=== PATIENT | female | born 1950 ===

== ENCOUNTER 2018-09-14 15:22 | Inpatient (IN) | payer MEDICARE ==
--- NOTE | 2018-09-14 16:00 | Emergency Department Report ---
Stated Complaint: POSSIBLE STROKE Time Seen by Provider: 09/14/18 15:57 - HPI History of Present Illness: This is a 68 y.o. female accompanied by daughter with AMS. PMH CVA, TIA, and seizures. Daughter states patient is unable to comprehend what she is asking patient to do over the past 2-3 hours. She will not move left arm. Patient daughter fixed lunch and asked patient to eat and patient was staring into space and couldn't understand what she was asking. - Exam Vital Signs: Vital Signs 09/14/18 15:36 Temperature 98.6 F Pulse Rate 79 Respiratory 20 Rate Blood Pressure 128/77 O2 Sat by Pulse 98 Oximetry MSE screening note: Focused history and physical exam performed. Due to findings the following was ordered: Labs, CXR, and CT of head. POC 78. Main ED for further evaluation. ED Disposition for MSE Condition: Stable
[2018-09-14] MEDS ORDERED: KEPPRA 1,000 MG in NACL 0.9% 100 ML IV ONE (16:32)
[2018-09-14 16:39] LABS: Basophils % (Auto) 0.9 % (0.0-1.8); Eosinophils % (Auto) 0.9 % (0.0-4.3); Hematocrit 40.7 % (30.3-42.9); Hemoglobin 13.1 gm/dl (10.1-14.3); Lymphocytes # (Auto) 0.8 K/mm3 (1.2-5.4); Lymphocytes % (Auto) 17.1 % (13.4-35.0); Mean Corpuscular HGB Conc 32 % (30-34); Mean Corpuscular Volume 85 fl (79-97); Monocytes # (Auto) 0.4 K/mm3 (0.0-0.8); Platelet Count 232 K/mm3 (140-440); Red Blood Count 4.78 M/mm3 (3.65-5.03); Red Cell Distribution Width 13.9 % (13.2-15.2)
[2018-09-14 16:53] LABS: INR 0.94 (0.87-1.13)
[2018-09-14 16:54] LABS: Partial Thromboplastin Time 28.6 Sec. (24.2-36.6)
[2018-09-14 16:55] LABS: BUN/Creatinine Ratio 16; Blood Urea Nitrogen 11 mg/dL (7-17); Hemolysis Index 92
[2018-09-14] MEDS ORDERED: KEPPRA 1,000 MG/NS 0.75% 100ML 1,000 MG/100 ML BAG IV ONE (17:00)
[2018-09-14] MEDS ORDERED: ASPIRIN PO ONE (17:02)
--- NOTE | 2018-09-14 17:02 | Emergency Department Report ---
ED Neuro Deficit HPI - General Chief Complaint: Neuro Symptoms/Deficit Stated Complaint: POSSIBLE STROKE Time Seen by Provider: 09/14/18 15:57 Source: family (Daughter) Mode of arrival: Wheelchair Limitations: No Limitations - History of Present Illness Initial Comments: [facility] TeleStroke Metrics: LKW: 1900 Door Time: 1522 [facility] Contacted: 1601 [facility] at Bedside: 1607 NIHSS: 1620 Decision on Alteplase: Not to give as her last known well time was last night. Interventional Candidate: Not a candidate as her symptoms are not consistent with a large vessel proximal occlusion. Chief Complaint: Altered mental status and left-sided weakness/numbness HPI: Asked to see this patient in telemedicine consultation. ?Consultation was performed with assistance of ancillary / medical staff at bedside. Verbal consent to perform the examination with telemedicine was obtained. Patient agreed to proceed with the consultation. 68-year-old left-handed -Italian female who was brought to the emergency room by her daughter for persistent altered mental status. According to the ER team, daughter had reported that the patient was last known well last night around 7 PM[address] At some point along the way she developed some confusion and making odd statements. The patient herself tells me that she started feeling off and confused sometime around noontime today. However, apparently this has been going on since last night. Daughter apparently came back home around noontime, and found the patient still confused. She noted that she had problems comprehending things and answering her questions. There is also a question of left arm weakness. She had reported that the patient seemed to be staring off at times while she was fixing her lunch. Patient herself complains of feeling off balance and "off". Patient states there was a recent adjustment of her thyroid medications. She does take a baby aspirin for her history of right hemisphere stroke approximately 5 years ago. Patient also has a history of seizure disorder, and states she takes Keppra 500 mg once a day. However, medical record shows she is supposed to be on Keppra 1000 mg once a day. Patient currently complains still feeling off and some left hemibody numbness. No other modifying factors. No other associated symptoms. PMH: Right hemisphere stroke, hyperlipidemia, hypothyroidism, GERD, and seizure disorder SOC: Negative x3. Patient lives with her daughter. FMH: Negative for strokes or seizures. ROS: 13 point review systems were reviewed with the patient, and are all negative with the exception of the aforementioned in the history of present illness. VS: Temperature is 98.6F, pulse 79, respiration 20, blood pressure 128/77, oxygen saturation 98% Exam: Patient is in no apparent distress. Patient appears as stated age. No obvious acute respiratory or cardiac distress. Patient is well groomed and well-nourished. 1a- LOC: Keenly responsive - 0 1b- LOC questions: Answers 1 question correctly - 1 1c- LOC commands- Performs both tasks correctly- 0 2- Gaze: Normal; no gaze paresis or gaze deviation - 0 3- Visual Arauz: normal, no Visual field deficit - 0 4- Facial movements: no facial palsy - 0 5- Upper limb motor - no drift - 0 6- Lower limb motor - no drift - 0 7- Limb Coordination: left arm and leg ataxia - 2 8- Sensory: Left hemibody sensory loss - 1 9- Language - No aphasia - 0 10- Speech - No dysarthria -0 11- Neglect / Extinction - none found - 0 NIHSS score: 4 Diagnostic Data: Blood glucose 78 CT of the head per ER attending showed no acute hemorrhage or mass. There is an old prior right hemisphere stroke. Medical Data Reviewed: 1.Data reviewed include clinical labs, radiology, and medical tests; 2.Tests results discussed w/performing or interpreting physician; 3.Obtaining/reviewing old medical records; 4.Obtaining case history from another source; 5.Independent?review of image, tracing, or specimen. Medical Decision Making: - Extensive number of diagnosis or management options are considered below. - Extensive amount of complex data reviewed. - High risk of complication and/or morbidity or mortality are associated with differential diagnostic considerations below. - There may be?uncertain?outcome and increased probability of prolonged functional impairment or high probability of severe prolonged functional impairment associated with some of these differential diagnosis. Differential Diagnosis for Stroke: 1. Cardioembolic stroke 2. Small vessel disease/lacune 3. Thromboembolic, [id number] mechanism 4. Hypercoagulable state-related infarct 5. Transient ischemic attack 6. Thrombotic mechanism, large artery disease Assessment: 1. Acute encephalopathy possibly due to breakthrough seizure 2. Prior right hemisphere seizure 3. Seizure disorder 4. Hyperlipidemia 5. GERD 6. Hypothyroidism Recommendations: Patient can be admitted to the hospital for further workup of her symptoms. Metabolic and infectious workup per primary team. Patient can be maintained on her aspirin. Increase her Keppra to 1000 mg p.o. twice a day. She will be given a IV Keppra load in the ER. Check MRI of the brain to rule out any acute intracranial process. Consult local neurology team to assist with evaluation and management. Continue supportive care. Thank you for allowing [facility] to participate in the care of your patient. Please call me, Dr. Green, with any questions at [phone]. Case discussed with the ER staff and Dr. Escobar. Critical Care notation: I was called to see this critical patient emergently. I personally evaluated this critical patient for acute stroke evaluation, and determining their eligibility for IV Alteplase and interventional therapies. I have spent appro ximately 20 minutes with the patient, including time at bedside, time discussing the case with other physicians, reviewing plan of care, and time independently reviewing the records and scans. -: Last night Location: altered - Related Data Home Medications: Home Medications Medication Instructions Recorded Confirmed Last Taken AtorvaSTATin [Lipitor] 20 mg PO DAILY 05/26/18 05/26/18 05/26/18 Levothyroxine [Synthroid] 75 mg PO 3XW 05/26/18 05/26/18 05/25/18 Pantoprazole [Protonix TAB] 40 mg PO DAILY 05/26/18 05/26/18 05/26/18 levETIRAcetam [Levetiracetam] 1,000 mg PO DAILY 05/26/18 05/26/18 05/25/18 Previous Rx's Medication Instructions Recorded Last Taken Type Aspirin 81 mg PO DAILY #30 tab.chew 05/28/18 Unknown Rx Allergies/Adverse Reactions: Allergies Allergy/AdvReac Type Severity Reaction Status Date / Time mushroom Allergy Anaphylaxis Verified 05/26/18 22:14 shrimp Allergy Anaphylaxis Verified 05/26/18 22:14 ED Review of Systems ROS: Stated complaint: POSSIBLE STROKE Other details as noted in HPI ED Past Medical Hx - Past Medical History Hx CVA: Yes (2013) Hx GERD: Yes Hx Seizures: Yes Hx Kidney Stones: Yes Additional medical history: hyperthyroid, stroke x2 - Surgical History Hx Cholecystectomy: Yes Additional Surgical History: amplatzer septal occluder 10/06/2013 model # 9-ASD-020 Serial Lot [id number]. hysterectomy - Social History Smoking Status: Never Smoker Substance Use Type: None - Medications Home Medications: Home Medications Medication Instructions Recorded Confirmed Last Taken Type AtorvaSTATin [Lipitor] 20 mg PO DAILY 05/26/18 05/26/18 05/26/18 History Levothyroxine [Synthroid] 75 mg PO 3XW 05/26/18 05/26/18 05/25/18 History Pantoprazole [Protonix TAB] 40 mg PO DAILY 05/26/18 05/26/18 05/26/18 History levETIRAcetam [Levetiracetam] 1,000 mg PO DAILY 05/26/18 05/26/18 05/25/18 History Aspirin 81 mg PO DAILY #30 tab.chew 05/28/18 Unknown Rx ED Neuro Physical Exam - General Limitations: No Limitations Suspected Stroke: Yes (Stroke vs Seizure) - NIHSS Assessment Interval: Baseline 1a. Level of Consciousness: alert/keenly responsive 1b. LOC Questions: answers 1 question correctly 1c. LOC Commands: performs tasks correctly 2. Best Gaze: normal 3. Visual: no visual loss 4. Facial Palsy: normal symmetrical movement 5b. Motor Arm Right: no drift 5a. Motor Arm Left: no drift 6a. Motor Leg Left: no drift 6b. Motor Leg Right: no drift 7. Limb Ataxia: present 2 limbs 8. Sensory: mild/moderate sensory loss 9. Best Language: no aphasia 10. Dysarthria: normal 11. Extinction/Inattention: no abnormality Total Score: 4 Stroke Severity: Minor Stroke ED Course Vital Signs 09/14/18 15:36 Temperature 98.6 F Pulse Rate 79 Respiratory 20 Rate Blood Pressure 128/77 O2 Sat by Pulse 98 Oximetry - Lab Data Result diagrams: 09/14/18 16:28 09/14/18 16:28 Lab Results 09/14/18 09/14/18 09/14/18 Range/Units 15:30 16:06 16:28 WBC 4.8 (4.5-11.0) K/mm3 RBC 4.78 (3.65-5.03) M/mm3 Hgb 13.1 (10.1-14.3) gm/dl Hct 40.7 (30.3-42.9) % MCV 85 (79-97) fl MCH 27 L (28-32) pg MCHC 32 (30-34) % RDW 13.9 (13.2-15.2) % Plt Count 232 (140-440) K/mm3 Lymph % (Auto) 17.1 (13.4-35.0) % [place] % (Auto) 9.0 H (0.0-7.3) % Eos % (Auto) 0.9 (0.0-4.3) % Baso % (Auto) 0.9 (0.0-1.8) % Lymph # 0.8 L (1.2-5.4) K/mm3 [place] # 0.4 (0.0-0.8) K/mm3 Eos # 0.0 (0.0-0.4) K/mm3 Baso # 0.0 (0.0-0.1) K/mm3 Seg Neutrophils % 72.1 H (40.0-70.0) % Seg Neutrophils # 3.5 (1.8-7.7) K/mm3 PT (12.2-14.9) Sec. INR (0.87-1.13) APTT (24.2-36.6) Sec. Thrombin Time (15.1-19.6) Sec. Sodium (137-145) mmol/L Potassium (3.6-5.0) mmol/L Chloride (98-107) mmol/L Carbon Dioxide (22-30) mmol/L Anion Gap mmol/L BUN (7-17) mg/dL Creatinine (0.7-1.2) mg/dL Estimated GFR ml/min BUN/Creatinine Ratio % Glucose (65-100) mg/dL POC Glucose 78 79 (70-105) Calcium (8.4-10.2) mg/dL Troponin T (0.00-0.029) ng/mL 09/14/18 09/14/18 09/14/18 Range/Units 16:28 16:28 16:28 WBC (4.5-11.0) K/mm3 RBC (3.65-5.03) M/mm3 Hgb (10.1-14.3) gm/dl Hct (30.3-42.9) % MCV (79-97) fl MCH (28-32) pg MCHC (30-34) % RDW (13.2-15.2) % Plt Count (140-440) K/mm3 Lymph % (Auto) (13.4-35.0) % [place] % (Auto) (0.0-7.3) % Eos % (Auto) (0.0-4.3) % Baso % (Auto) (0.0-1.8) % Lymph # (1.2-5.4) K/mm3 [place] # (0.0-0.8) K/mm3 Eos # (0.0-0.4) K/mm3 Baso # (0.0-0.1) K/mm3 Seg Neutrophils % (40.0-70.0) % Seg Neutrophils # (1.8-7.7) K/mm3 PT 13.1 (12.2-14.9) Sec. INR 0.94 (0.87-1.13) APTT 28.6 (24.2-36.6) Sec. Thrombin Time 16.7 (15.1-19.6) Sec. Sodium 142 (137-145) mmol/L Potassium 4.1 (3.6-5.0) mmol/L Chloride 105.3 (98-107) mmol/L Carbon Dioxide 25 (22-30) mmol/L Anion Gap 16 mmol/L BUN 11 (7-17) mg/dL Creatinine 0.7 (0.7-1.2) mg/dL Estimated GFR > 60 ml/min BUN/Creatinine Ratio 16 % Glucose 108 H (65-100) mg/dL POC Glucose (70-105) Calcium 10.0 (8.4-10.2) mg/dL Troponin T < 0.010 (0.00-0.029) ng/mL Critical care attestation.: If time is entered above; I have spent that time in minutes in the direct care of this critically ill patient, excluding procedure time. ED Disposition Clinical Impression: Seizure Disposition: DC-09 OP ADMIT IP TO THIS HOSP Is pt being admited?: Yes Does the pt Need Aspirin: Yes Condition: Stable
[2018-09-14] MEDS ORDERED: TYLENOL ONE (17:18)
--- NOTE | 2018-09-14 17:30 | Emergency Department Report ---
ED Neuro Deficit HPI - General Chief Complaint: Neuro Symptoms/Deficit Stated Complaint: POSSIBLE STROKE Time Seen by Provider: 09/14/18 15:57 Source: family (Daughter) Mode of arrival: Wheelchair Limitations: No Limitations - History of Present Illness Initial Comments: 68-year-old female with history of CVA in the past presents to ED with altered mental status. Patient last seen normal at 7 PM last night. Daughter states she went to check on patient today and she seems to respond, and also seemed to have weakness in the left arm. Daughter states patient had no residual deficits from her previous stroke. PCP: Nav[facility] -: This afternoon Last Observed Normal: 19:00 (yesterday evening) Location: left arm, altered Presenting Symptoms: Present: Altered Mental Status Place: home Severity: moderate Quality: weak Improves With: none Worsens With: none Associated Symptoms: confusion. denies: chest pain, cough, fever/chills, headaches, nausea/vomiting, shortness of breath Treatments Prior to Arrival: none - Related Data Home Medications: Home Medications Medication Instructions Recorded Confirmed Last Taken AtorvaSTATin [Lipitor] 20 mg PO DAILY 05/26/18 05/26/18 05/26/18 Pantoprazole [Protonix TAB] 40 mg PO DAILY 05/26/18 05/26/18 05/26/18 levETIRAcetam [Levetiracetam] 1,000 mg PO DAILY 05/26/18 05/26/18 05/25/18 Latanoprost [Xalatan] 1 drop OU HS 09/14/18 09/14/18 Unknown Levothyroxine Sodium [Synthroid] 112 mcg PO QDAY 09/14/18 09/14/18 Unknown Previous Rx's Medication Instructions Recorded Last Taken Type Aspirin 81 mg PO DAILY #30 tab.chew 05/28/18 Unknown Rx Allergies/Adverse Reactions: Allergies Allergy/AdvReac Type Severity Reaction Status Date / Time mushroom Allergy Anaphylaxis Verified 05/26/18 22:14 shrimp Allergy Anaphylaxis Verified 05/26/18 22:14 ED Review of Systems ROS: Stated complaint: POSSIBLE STROKE Other details as noted in HPI Comment: All other systems reviewed and negative Constitutional: denies: chills, fever Respiratory: denies: cough, shortness of breath Cardiovascular: denies: chest pain Gastrointestinal: denies: abdominal pain, nausea, vomiting Neurological: denies: headache ED Past Medical Hx - Past Medical History Hx CVA: Yes (2013) Hx GERD: Yes Hx Seizures: Yes Hx Kidney Stones: Yes Additional medical history: hyperthyroid, stroke x2 - Surgical History Hx Cholecystectomy: Yes Additional Surgical History: amplatzer septal occluder 10/06/2013 model # 9-ASD- 020 Serial Lot [id number]. hysterectomy - Social History Smoking Status: Never Smoker Substance Use Type: None - Medications Home Medications: Home Medications Medication Instructions Recorded Confirmed Last Taken Type AtorvaSTATin [Lipitor] 20 mg PO DAILY 05/26/18 05/26/18 05/26/18 History Pantoprazole [Protonix TAB] 40 mg PO DAILY 05/26/18 05/26/18 05/26/18 History levETIRAcetam [Levetiracetam] 1,000 mg PO DAILY 05/26/18 05/26/18 05/25/18 History Aspirin 81 mg PO DAILY #30 tab.chew 05/28/18 Unknown Rx Latanoprost [Xalatan] 1 drop OU HS 09/14/18 09/14/18 Unknown History Levothyroxine Sodium [Synthroid] 112 mcg PO QDAY 09/14/18 09/14/18 Unknown History ED Neuro Physical Exam - General Limitations: No Limitations General appearance: alert, in no apparent distress Suspected Stroke: Yes - Head Head exam: Present: atraumatic, normocephalic - Eye Eye exam: Present: normal appearance - ENT ENT exam: Present: mucous membranes moist - Neck Neck exam: Present: normal inspection - Respiratory Respiratory exam: Present: normal lung sounds bilaterally. Absent: respiratory distress - Cardiovascular Cardiovascular Exam: Present: regular rate, normal rhythm - GI/Abdominal GI/Abdominal exam: Present: soft. Absent: distended, tenderness - Extremities Exam Extremities exam: Present: normal inspection - NIHSS Assessment Interval: Baseline 1a. Level of Consciousness: alert/keenly responsive 1b. LOC Questions: answers 1 question correctly 1c. LOC Commands: performs tasks correctly 2. Best Gaze: partial gaze palsy 3. Visual: no visual loss 4. Facial Palsy: normal symmetrical movement 5b. Motor Arm Right: no drift 5a. Motor Arm Left: drift 6a. Motor Leg Left: no drift 6b. Motor Leg Right: no drift 7. Limb Ataxia: present 1 limb 8. Sensory: mild/moderate sensory loss 9. Best Language: no aphasia 10. Dysarthria: normal 11. Extinction/Inattention: no abnormality Total Score: 5 Stroke Severity: Moderate Stroke - Psychiatric Psychiatric exam: Present: normal affect, normal mood - Skin Skin exam: Present: warm, dry, intact, normal color ED Course Vital Signs 09/14/18 15:36 Temperature 98.6 F Pulse Rate 79 Respiratory 20 Rate Blood Pressure 128/77 O2 Sat by Pulse 98 Oximetry - Lab Data Result diagrams: 09/14/18 16:28 09/14/18 16:28 Lab Results 09/14/18 09/14/18 09/14/18 Range/Units 15:30 16:06 16:28 WBC 4.8 (4.5-11.0) K/mm3 RBC 4.78 (3.65-5.03) M/mm3 Hgb 13.1 (10.1-14.3) gm/dl Hct 40.7 (30.3-42.9) % MCV 85 (79-97) fl MCH 27 L (28-32) pg MCHC 32 (30-34) % RDW 13.9 (13.2-15.2) % Plt Count 232 (140-440) K/mm3 Lymph % (Auto) 17.1 (13.4-35.0) % [place] % (Auto) 9.0 H (0.0-7.3) % Eos % (Auto) 0.9 (0.0-4.3) % Baso % (Auto) 0.9 (0.0-1.8) % Lymph # 0.8 L (1.2-5.4) K/mm3 [place] # 0.4 (0.0-0.8) K/mm3 Eos # 0.0 (0.0-0.4) K/mm3 Baso # 0.0 (0.0-0.1) K/mm3 Seg Neutrophils % 72.1 H (40.0-70.0) % Seg Neutrophils # 3.5 (1.8-7.7) K/mm3 PT (12.2-14.9) Sec. INR (0.87-1.13) APTT (24.2-36.6) Sec. Thrombin Time (15.1-19.6) Sec. Sodium (137-145) mmol/L Potassium (3.6-5.0) mmol/L Chloride (98-107) mmol/L Carbon Dioxide (22-30) mmol/L Anion Gap mmol/L BUN (7-17) mg/dL Creatinine (0.7-1.2) mg/dL Estimated GFR ml/min BUN/Creatinine Ratio % Glucose (65-100) mg/dL POC Glucose 78 79 (70-105) Calcium (8.4-10.2) mg/dL Troponin T (0.00-0.029) ng/mL 09/14/18 09/14/18 09/14/18 Range/Units 16:28 16:28 16:28 WBC (4.5-11.0) K/mm3 RBC (3.65-5.03) M/mm3 Hgb (10.1-14.3) gm/dl Hct (30.3-42.9) % MCV (79-97) fl MCH (28-32) pg MCHC (30-34) % RDW (13.2-15.2) % Plt Count (140-440) K/mm3 Lymph % (Auto) (13.4-35.0) % [place] % (Auto) (0.0-7.3) % Eos % (Auto) (0.0-4.3) % Baso % (Auto) (0.0-1.8) % Lymph # (1.2-5.4) K/mm3 [place] # (0.0-0.8) K/mm3 Eos # (0.0-0.4) K/mm3 Baso # (0.0-0.1) K/mm3 Seg Neutrophils % (40.0-70.0) % Seg Neutrophils # (1.8-7.7) K/mm3 PT 13.1 (12.2-14.9) Sec. INR 0.94 (0.87-1.13) APTT 28.6 (24.2-36.6) Sec. Thrombin Time 16.7 (15.1-19.6) Sec. Sodium 142 (137-145) mmol/L Potassium 4.1 (3.6-5.0) mmol/L Chloride 105.3 (98-107) mmol/L Carbon Dioxide 25 (22-30) mmol/L Anion Gap 16 mmol/L BUN 11 (7-17) mg/dL Creatinine 0.7 (0.7-1.2) mg/dL Estimated GFR > 60 ml/min BUN/Creatinine Ratio 16 % Glucose 108 H (65-100) mg/dL POC Glucose (70-105) Calcium 10.0 (8.4-10.2) mg/dL Troponin T < 0.010 (0.00-0.029) ng/mL - EKG Data -: EKG Interpreted by Me EKG shows normal: sinus rhythm, axis, intervals, QRS complexes, ST-T waves Rate: normal Interpretation: no acute changes - Radiology Data Radiology results: report reviewed, image reviewed - Medical Decision Making 68-year-old female with history of CVA presents CDU post-mental status. CT shows no acute findings, only evidence of previous CVA. Patient currently outside the window for tPA because she was last seen normal last night 7 PM. Patient seen and evaluated by telephone neurologist. He believes symptoms could be due to possible seizure, so she has history of seizures. Recommends Keppra load this patient only taken 1000 mg once a day. Remainder of the patient's workup is unremarkable. We will admit to hospitalist, Dr. Del Cid. - Differential Diagnosis CVA, seizure, UTI, pneumonia - Thrombolytic Inclusion/Exclusion Thrombolytic Exclusion Criteria: Symptom Onset > 3 Hours Critical care attestation.: If time is entered above; I have spent that time in minutes in the direct care of this critically ill patient, excluding procedure time. ED Disposition Clinical Impression: Seizure, Altered mental status Disposition: OP ADMIT IP TO THIS HOSP Is pt being admited?: Yes Condition: Stable Referrals: PRIMARY CARE, [Primary Care Provider] - 3-5 Days Time of Disposition: 17:28
--- NOTE | 2018-09-14 17:31 | Cat Scan Report ---
PROCEDURE: CT HEAD/BRAIN WO CON TECHNIQUE: Routine axial cuts were prior to calvarium CT DI 56 DLP 920 HISTORY: neuro deficits <6hrs or sx present upon awakening COMPARISONS: 05/26/2018 FINDINGS: When compared to prior study Again there is an area of encephalomalacia stable in appearance in the right MCA distribution with co mpensatory dilatation of the right lateral ventricle Again there is assumed small meningioma inner table of the superior midportion of the left parietal b one follow up MRI would be helpful to best evaluate this finding which appears to have slightly incre ased by approximately 3 mm in size prior study, but this could be due to slice selection artifact Otherwise the study is stable in appearance No displaced fracture. No midline shift. No herniation. No acute bleed. Atrophy. Periventricular small vessel disease. Multiple small areas of decreased attenuation in the white matter, most likely representing old vascu lar insults; comparison to prior study or follow-up MRI may be helpful if clinically possible and if clinically warranted. No hydrocephalus. No subarachnoid hemorrhage. IMPRESSION: When compared to prior study of 05/26/2018 Again there is an area of encephalomalacia stable in appearance in the right MCA distribution with co mpensatory dilatation of the right lateral ventricle Again there is assumed small meningioma inner table of the superior midportion of the left parietal b one follow up MRI would be helpful to best evaluate this finding which appears to have slightly incre ased by approximately 3 mm in size prior study, but this could be due to slice selection artifact Otherwise the study is stable in appearance. This document is electronically signed by Huan Aj MD., September 14 2018 05:29:16 PM ET
[2018-09-14] MEDS ORDERED: TYLENOL PO ONE (17:39)
--- NOTE | 2018-09-14 17:47 | XRay Report ---
PROCEDURE: XR CHEST 1V AP TECHNIQUE: Frontal portable view of the chest HISTORY: neuro deficit COMPARISONS: Chest x-ray dated May 26, 2018 the report of that study is not available for review at the time of this dictation. FINDINGS: There is prominence of the interstitial markings in both lungs similar in appearance to the previous study. There is no evidence of focal infiltrate, pneumothorax or pleural fluid collection. The cardiac silhouette appears to be enlarged similar in appearance to previous study with prosthetic cardiac device as was demonstrated on the previous study.. The thoracic aorta is tortuous. The bony structures are unremarkable. Surgical clips are demonstrated in the right abdomen. IMPRESSION: 1. No evidence of an acute pulmonary process. No significant change since previous study dated May 26, 2018. This document is electronically signed by Mahsa Bernard MD., September 14 2018 05:45:39 PM ET
[2018-09-14] MEDS ORDERED: ATIVAN IV PRN (19:16)
[2018-09-14] MEDS ORDERED: ATIVAN ONE (19:20)
--- NOTE | 2018-09-15 00:30 | Consultation ---
HISTORY OF PRESENT ILLNESS: This is a 68-year-old black female that presents to the Emergency Room at [facility]. She presents to the hospital with a history of not acting like herself and having problems with speech, disorientation. She was seen on stroke alert and she has evidence on CT of a large right-sided stroke over the right temporoparietal area in the distribution of the right middle cerebral artery. She states that she was last here in the hospital in 05/2018 and at that point, she had an evaluation for problems with weakness and disorientation, not speaking, according to her daughter. I spoke with the emergency physician. She was disoriented, had a gaze weakness of the left. She was moving her limbs well, did not have any focal weakness of the face, seemed very vague and distant. She had noted to have a blood sugar of 79 on admission and received some ____. At that point, the patient did seem somewhat better, but I did review her CT scan and it is essentially unchanged from the previous CT that was done in 05/[address] is at this point completely unchanged from previously. There is evidence of bleed or edema. I spoke with the emergency physician, recommend further admission for evaluation of the disorder. JOB# [id number] DELICIA/JABIER
[2018-09-15 01:54] LABS: Bilirubin,Urine NEG (Negative); Blood,Urine NEG (Negative); Color,Urine Straw (Yellow); Protein,Urine <15 mg/dL mg/dL (Negative); Urobilinogen,Urine < 2.0 mg/dL (<2.0); WBC,Urine < 1.0 /HPF (0.0-6.0)
--- NOTE | 2018-09-15 07:10 | History and Physical Report ---
History of Present Illness Date of examination: 09/14/18 Date of admission: 09/14/18 17:28 Chief complaint: L side weakness since AM History of present illness: History of Present Illness Initial Comments: 68-year-old female with history of CVA in the past presents to ED with altered mental status. Patient last seen normal at 7 PM last night. Daughter states she went to check on patient today and she seems to respond, and also seemed to have weakness in the left arm. Daughter states patient had no residual deficits from her previous stroke.Weak in LUE and LLE since AM Past Medical History CVA: Yes (2013)-No residual deficits GERD: Yes Seizures: Yes Kidney Stones: Yes Additional medical history: hyperthyroid, stroke x2 Surgical History Hx Cholecystectomy: Yes Additional Surgical History: amplatzer septal occluder 10/06/2013 model # 9-ASD-020 Serial Lot [id number]. hysterectomy Social History Smoking Status: Never Smoker Substance Use Type: None - Medications Home Medications: Home Medications Medication Instructions Recorded Confirmed Last Taken Type AtorvaSTATin [Lipitor] 20 mg PO DAILY 05/26/18 05/26/18 05/26/18 History Pantoprazole [Protonix TAB] 40 mg PO DAILY 05/26/18 05/26/18 05/26/18 History levETIRAcetam [Levetiracetam] 1,000 mg PO DAILY 05/26/18 05/26/18 05/25/18 History Aspirin 81 mg PO DAILY #30 tab.chew 05/28/18 Unknown Rx Latanoprost [Xalatan] 1 drop OU HS 09/14/18 09/14/18 Unknown History Levothyroxine Sodium [Synthroid] 112 mcg PO QDAY 09/14/18 09/14/18 Unknown History Review of Systems ROS: Stated complaint: POSSIBLE STROKE Other details as noted in HPI Comment: All other systems reviewed and negative Constitutional: denies: chills, fever Respiratory: denies: cough, shortness of breath Cardiovascular: denies: chest pain Gastrointestinal: denies: abdominal pain, nausea, vomiting Neurological: denies: headache Medications and Allergies Allergies Allergy/AdvReac Type Severity Reaction Status Date / Time mushroom Allergy Anaphylaxis Verified 05/26/18 22:14 shrimp Allergy Anaphylaxis Verified 05/26/18 22:14 Home Medications Medication Instructions Recorded Confirmed Last Taken Type AtorvaSTATin [Lipitor] 20 mg PO HS 05/26/18 09/14/18 05/26/18 History Pantoprazole [Protonix TAB] 40 mg PO DAILY 05/26/18 09/14/18 05/26/18 History levETIRAcetam [Levetiracetam] 1,000 mg PO DAILY 05/26/18 09/14/18 05/25/18 History Aspirin 81 mg PO DAILY #30 tab.chew 05/28/18 09/14/18 Unknown Rx Latanoprost [Xalatan] 1 drop OU HS 09/14/18 09/14/18 Unknown History Levothyroxine Sodium [Synthroid] 112 mcg PO QDAY 09/14/18 09/14/18 Unknown History Active Meds: Active Medications Lorazepam (Ativan) 1 mg IV Q3H PRN PRN Reason: Seizures Last Admin: 09/14/18 19:21 Dose: 1 mg Documented by: Exam - Constitutional Vitals: Temp Pulse Resp BP Pulse Ox 97.5 F L 94 H 20 105/69 98 09/15/18 00:19 09/15/18 00:19 09/15/18 00:19 09/15/18 00:19 09/15/18 06:15 General appearance: Present: no acute distress, well-nourished - EENT Eyes: Present: PERRL ENT: hearing intact, clear oral mucosa - Neck Neck: Present: supple, normal ROM - Respiratory Respiratory effort: normal Respiratory: bilateral: CTA - Cardiovascular Heart rate: 78 Rhythm: regular Heart Sounds: Present: S1 & S2. Absent: rub, click - Extremities Extremities: no ischemia, pulses symmetrical, No edema Peripheral Pulses: within normal limits - Abdominal General gastrointestinal: Present: soft, non-tender, non-distended, normal bowel sounds Female genitourinary: Present: normal - Integumentary Integumentary: Present: clear, warm, dry - Musculoskeletal Musculoskeletal: left sided weakness - Psychiatric Psychiatric: appropriate mood/affect, intact judgment & insight - Neurologic Neurologic: CNII-XII intact, focal deficits (LUE and LLE 0/5 power reflexes diminished) - Allied Health Allied health notes reviewed: nursing, case management Results - Labs CBC & Chem 7: 09/14/18 16:28 09/14/18 16:28 Labs: Laboratory Last Values WBC 4.8 K/mm3 (4.5-11.0) 04/09/19 16:28 RBC 4.78 M/mm3 (3.65-5.03) 09/14/18 16:28 Hgb 13.1 gm/dl (10.1-14.3) 09/14/18 16:28 Hct 40.7 % (30.3-42.9) 09/14/18 16:28 MCV 85 fl (79-97) 09/14/18 16:28 MCH 27 pg (28-32) L 09/14/18 16:28 MCHC 32 % (30-34) 09/14/18 16:28 RDW 13.9 % (13.2-15.2) 09/14/18 16:28 Plt Count 232 K/mm3 (140-440) 09/14/18 16:28 Lymph % (Auto) 17.1 % (13.4-35.0) 09/14/18 16:28 [place] % (Auto) 9.0 % (0.0-7.3) H 09/14/18 16:28 Eos % (Auto) 0.9 % (0.0-4.3) 09/14/18 16:28 Baso % (Auto) 0.9 % (0.0-1.8) 09/14/18 16:28 Lymph # 0.8 K/mm3 (1.2-5.4) L 09/14/18 16:28 [place] # 0.4 K/mm3 (0.0-0.8) 09/14/18 16:28 Eos # 0.0 K/mm3 (0.0-0.4) 09/14/18 16:28 Baso # 0.0 K/mm3 (0.0-0.1) 09/14/18 16:28 Seg Neutrophils % 72.1 % (40.0-70.0) H 09/14/18 16:28 Seg Neutrophils # 3.5 K/mm3 (1.8-7.7) 09/14/18 16:28 PT 13.1 Sec. (12.2-14.9) 09/14/18 16:28 INR 0.94 (0.87-1.13) 09/14/18 16:28 APTT 28.6 Sec. (24.2-36.6) 09/14/18 16:28 Thrombin Time 16.7 Sec. (15.1-19.6) 09/14/18 16:28 Sodium 142 mmol/L (137-145) 09/14/18 16:28 Potassium 4.1 mmol/L (3.6-5.0) 09/14/18 16:28 Chloride 105.3 mmol/L (98-107) 09/14/18 16:28 Carbon Dioxide 25 mmol/L (22-30) 09/14/18 16:28 Anion Gap 16 mmol/L 09/14/18 16:28 BUN 11 mg/dL (7-17) 09/14/18 16:28 Creatinine 0.7 mg/dL (0.7-1.2) 09/14/18 16:28 Estimated GFR > 60 ml/min 09/14/18 16:28 BUN/Creatinine Ratio 16 % 09/14/18 16:28 Glucose 108 mg/dL (65-100) H 09/14/18 16:28 POC Glucose 79 (70-105) 09/14/18 16:06 Calcium 10.0 mg/dL (8.4-10.2) 09/14/18 16:28 Troponin T < 0.010 ng/mL (0.00-0.029) 09/14/18 16:28 Urine Color Straw (Yellow) 09/15/18 01:15 Urine Turbidity Clear (Clear) 09/15/18 01:15 Urine pH 7.0 (5.0-7.0) 09/15/18 01:15 Ur Specific [place] 1.008 (1.003-1.030) 09/15/18 01:15 Urine Protein <15 mg/dl mg/dL (Negative) 09/15/18 01:15 Urine Glucose (UA) Neg mg/dL (Negative) 09/15/18 01:15 Urine Ketones Neg mg/dL (Negative) 09/15/18 01:15 Urine Blood Neg (Negative) 09/15/18 01:15 Urine Nitrite Neg (Negative) 09/15/18 01:15 Urine Bilirubin Neg (Negative) 09/15/18 01:15 Urine Urobilinogen < 2.0 mg/dL (<2.0) 09/15/18 01:15 Ur Leukocyte Esterase Neg (Negative) 09/15/18 01:15 Urine WBC (Auto) < 1.0 /HPF (0.0-6.0) 09/15/18 01:15 Urine RBC (Auto) 3.0 /HPF (0.0-6.0) 09/15/18 01:15 U Epithel Cells (Auto) < 1.0 /HPF (0-13.0) 09/15/18 01:15 Short CBC 09/14/18 Range/Units 16:28 WBC 4.8 (4.5-11.0) K/mm3 Hgb 13.1 (10.1-14.3) gm/dl Hct 40.7 (30.3-42.9) % Plt Count 232 (140-440) K/mm3 BMP 09/14/18 16:28 Sodium 142 Potassium 4.1 Chloride 105.3 Carbon Dioxide 25 BUN 11 Creatinine 0.7 Glucose 108 H Calcium 10.0 Cardiac Enzymes 09/14/18 Range/Units 16:28 Troponin T < 0.010 (0.00-0.029) ng/mL Urine 09/15/18 Range/Units 01:15 Urine Color Straw (Yellow) Urine pH 7.0 (5.0-7.0) Ur Specific [place] 1.008 (1.003-1.030) Urine Protein <15 mg/dl (Negative) mg/dL Urine Glucose (UA) Neg (Negative) mg/dL - Imaging and Cardiology EKG: report reviewed (NSR 82/min) Imaging and Cardiology: CT Head IMPRESSION: When compared to prior study of 05/26/2018 Again there is an area of encephalomalacia stable in appearance in the right MCA distribution with compensatory dilatation of the right lateral ventricle Again there is assumed small meningioma inner table of the superior midportion of the left parietal bone follow up MRI would be helpful to best evaluate this finding which appears to have slightly increased by approximately 3 mm in size prior study, but this could be due to slice selection artifact Otherwise the study is stable Assessment and Plan Advance Directives: Yes (Full code) VTE prophylaxis?: Chemical Plan of care discussed with patient/family: Yes - Patient Problems (1) Acute CVA (cerebrovascular accident) Current Visit: Yes Status: Acute Plan to address problem: Acute CVA Out side the window period for TPA S[place] protocol initiated Neuro consult requeted (2) Seizure disorder Current Visit: Yes Status: Chronic Plan to address problem: Cont Keppra (3) HLD (hyperlipidemia) Current Visit: Yes Status: Chronic Qualifiers: Hyperlipidemia type: mixed hyperlipidemia Qualified Code(s): E78.2 - Mixed hyperlipidemia Plan to address problem: COnt Statins (4) GERD (gastroesophageal reflux disease) Current Visit: Yes Status: Chronic Qualifiers: Esophagitis presence: without esophagitis Qualified Code(s): K21.9 - Gastro-esophageal reflux disease without esophagitis Plan to address problem: COnt PPI's (5) Glaucoma Current Visit: Yes Status: Chronic Qualifiers: Glaucoma type: unspecified Plan to address problem: Cont Latanoprost (6) DVT prophylaxis Current Visit: Yes Status: Acute Plan to address problem: On Lovenox and GI prophylaxis
[2018-09-15] MEDS ORDERED: SODIUM CHLORIDE FLUSH SYRINGE 10 ML IV PRN (07:16)
[2018-09-15] MEDS ORDERED: TYLENOL PO PRN (07:16)
[2018-09-15] MEDS ORDERED: ZOFRAN IV PRN (07:16)
[2018-09-15] MEDS ORDERED: PERCOCET 5/325 PO PRN (07:17)
[2018-09-15] MEDS ORDERED: DILAUDID IV PRN (07:17)
[2018-09-15] MEDS ORDERED: SODIUM CHLORIDE FLUSH SYRINGE 10 ML INJ PRN (07:18)
[2018-09-15] MEDS ORDERED: D5NS 1,000 ML IV SCH (08:00)
--- NOTE | 2018-09-15 08:22 | Progress Note ---
Subjective Date of service: 09/15/18 Interval history: saw patient during stroke alert / reviviewed the old CT of brain and new CT of brain large old MCA infarct on the right MCA question of new stroke on the periphery plan MRI recommend EEG Objective - Vital Sign Vital Signs - 12hr 09/14/18 09/14/18 09/14/18 21:09 21:27 23:16 Temperature 97.7 F Pulse Rate 105 H 105 H Respiratory 20 Rate Blood Pressure 126/75 O2 Sat by Pulse 100 99 Oximetry 09/15/18 09/15/18 00:19 06:15 Temperature 97.5 F L Pulse Rate 94 H Respiratory 20 Rate Blood Pressure 105/69 O2 Sat by Pulse 100 98 Oximetry - Laboratory Findings CBC and BMP: 09/14/18 16:28 09/14/18 16:28 Abnormal Lab Findings: Abnormal Labs 09/14/18 09/14/18 16:28 16:28 MCH 27 L [place] % (Auto) 9.0 H Lymph # 0.8 L Seg Neutrophils % 72.1 H Glucose 108 H
[2018-09-15] MEDS ORDERED: KEPPRA PO SCH (10:00)
[2018-09-15] MEDS ORDERED: PEPCID PO SCH (10:00)
[2018-09-15] MEDS: PROTONIX PO SCH (10:44)
[2018-09-15] MEDS: KEPPRA PO SCH ×2 (10:45→21:06)
[2018-09-15] MEDS: BABY ASPIRIN PO SCH (10:51)
[2018-09-15] MEDS: SODIUM CHLORIDE FLUSH SYRINGE 10 ML IV SCH ×2 (10:52→21:07)
[2018-09-15] MEDS: SYNTHROID PO SCH (10:55)
--- NOTE | 2018-09-15 17:44 | Progress Note ---
Assessment and Plan Assessment and plan: Patient is a 68-year-old woman with history of CVA who presents with multiple seizures, AMS, weak in LUE and LLE weakness * CT Head IMPRESSION: When compared to prior study of 05/26/2018 Again there is an area of encephalomalacia stable in appearance in the right MCA distribution with compensatory dilatation of the right lateral ventricle Again there is assumed small meningioma inner table of the superior midportion of the left parietal bone follow up MRI would be helpful to best evaluate this finding which appears to have slightly increased by approximately 3 mm in size prior study, but this could be due to slice selection artifact Otherwise the study is stable -Status epilepticus: increase keppra dose, until daughter can verify how much keppra was actually taking -Acute metabolic encephalopathy -Suspected Acute CVA (cerebrovascular accident),Out side the window period for TPA, Stroke protocol initiated -HLD (hyperlipidemia) COnt Statins -GERD (gastroesophageal reflux disease) ppi -Glaucoma: cont Latanoprost -DVT prophylaxis: On Lovenox and GI prophylaxis History Interval history: Patient was seen and examined. Follow-up on current diagnosis of Seizures. Overnight uneventful. Patient denies any chest pain, shortness breath, nausea/vomiting or severe headaches. Imaging, nursing note, chart, labs and old chart reviewed. Discussed with patient. Daughter Sivan at bedside witnessed multiple seizures. Home meds reviewed and patient gave 5 different story regarding how much and when she takes her keppra, she suppose to take 500mg 2 tabs po [facility] Hospitalist Physical - Physical exam Narrative exam: Gen: WDWN, NAD, Awake, Alert, Orientated HEENT: NCAT, EOMI, PERRL, OP Clear Neck: supple, no adenopathy, no thyromegaly, no JVD CVS/Heart: RRR, normal S1S2, pulses present bilaterally Chest/Lungs: CTA B, Symmetrical chest expansion, good air entry bilaterally GI/Abdomen: soft, NTND, good bowel sounds, no guarding or rebound /Bladder: no suprapubic tenderness, no CVA or paraspinal tenderness Extermity/Skin: no c/c/e, no obvious rash MSK: FROM x 4 Neuro: CN 2-12 grossly intact, no new focal deficits Psych: calm - Constitutional Vitals: Temp Pulse Resp BP Pulse Ox 97.4 F L 80 12 127/73 93 09/15/18 11:54 09/15/18 11:54 09/15/18 11:54 09/15/18 11:54 09/15/18 11:54 General appearance: Present: no acute distress, well-nourished Results - Labs CBC & Chem 7: 09/14/18 16:28 09/14/18 16:28 Labs: Laboratory Last Values WBC 4.8 K/mm3 (4.5-11.0) 09/14/18 16:28 RBC 4.78 M/mm3 (3.65-5.03) 09/14/18 16:28 Hgb 13.1 gm/dl (10.1-14.3) 09/14/18 16:28 Hct 40.7 % (30.3-42.9) 09/14/18 16:28 MCV 85 fl (79-97) 09/14/18 16:28 MCH 27 pg (28-32) L 09/14/18 16:28 MCHC 32 % (30-34) 09/14/18 16:28 RDW 13.9 % (13.2-15.2) 09/14/18 16:28 Plt Count 232 K/mm3 (140-440) 09/14/18 16:28 Lymph % (Auto) 17.1 % (13.4-35.0) 09/14/18 16:28 [place] % (Auto) 9.0 % (0.0-7.3) H 09/14/18 16:28 Eos % (Auto) 0.9 % (0.0-4.3) 09/14/18 16:28 Baso % (Auto) 0.9 % (0.0-1.8) 09/14/18 16:28 Lymph # 0.8 K/mm3 (1.2-5.4) L 09/14/18 16:28 [place] # 0.4 K/mm3 (0.0-0.8) 09/14/18 16:28 Eos # 0.0 K/mm3 (0.0-0.4) 09/14/18 16:28 Baso # 0.0 K/mm3 (0.0-0.1) 09/14/18 16:28 Seg Neutrophils % 72.1 % (40.0-70.0) H 09/14/18 16:28 Seg Neutrophils # 3.5 K/mm3 (1.8-7.7) 09/14/18 16:28 PT 13.1 Sec. (12.2-14.9) 09/14/18 16:28 INR 0.94 (0.87-1.13) 09/14/18 16:28 APTT 28.6 Sec. (24.2-36.6) 09/14/18 16:28 Thrombin Time 16.7 Sec. (15.1-19.6) 09/14/18 16:28 Sodium 142 mmol/L (137-145) 09/14/18 16:28 Potassium 4.1 mmol/L (3.6-5.0) 09/14/18 16:28 Chloride 105.3 mmol/L (98-107) 09/14/18 16:28 Carbon Dioxide 25 mmol/L (22-30) 09/14/18 16:28 Anion Gap 16 mmol/L 09/14/18 16:28 BUN 11 mg/dL (7-17) 09/14/18 16:28 Creatinine 0.7 mg/dL (0.7-1.2) 09/14/18 16:28 Estimated GFR > 60 ml/min 09/14/18 16:28 BUN/Creatinine Ratio 16 % 09/14/18 16:28 Glucose 108 mg/dL (65-100) H 09/14/18 16:28 POC Glucose 94 (70-105) 09/15/18 11:57 Hemoglobin A1c 5.6 % (4-6) 09/15/18 07:46 Calcium 10.0 mg/dL (8.4-10.2) 09/14/18 16:28 Troponin T < 0.010 ng/mL (0.00-0.029) 09/14/18 16:28 TSH 0.005 mlU/mL (0.270-4.200) L 09/15/18 11:22 Urine Color Straw (Yellow) 09/15/18 01:15 Urine Turbidity Clear (Clear) 09/15/18 01:15 Urine pH 7.0 (5.0-7.0) 09/15/18 01:15 Ur Specific [place] 1.008 (1.003-1.030) 09/15/18 01:15 Urine Protein <15 mg/dl mg/dL (Negative) 09/15/18 01:15 Urine Glucose (UA) Neg mg/dL (Negative) 09/15/18 01:15 Urine Ketones Neg mg/dL (Negative) 09/15/18 01:15 Urine Blood Neg (Negative) 09/15/18 01:15 Urine Nitrite Neg (Negative) 09/15/18 01:15 Urine Bilirubin Neg (Negative) 09/15/18 01:15 Urine Urobilinogen < 2.0 mg/dL (<2.0) 09/15/18 01:15 Ur Leukocyte Esterase Neg (Negative) 09/15/18 01:15 Urine WBC (Auto) < 1.0 /HPF (0.0-6.0) 09/15/18 01:15 Urine RBC (Auto) 3.0 /HPF (0.0-6.0) 09/15/18 01:15 U Epithel Cells (Auto) < 1.0 /HPF (0-13.0) 09/15/18 01:15 Active Medications - Current Medications Current Medications: Generic Name Dose Route Start Last Admin Trade Name Freq PRN Reason Stop Dose Admin Acetaminophen 650 mg 09/15/18 07:16 09/15/18 10:46 Tylenol PO 650 mg Q4H PRN Administration Pain MILD(1-3)/Fever >100.5/COOMBS Aspirin 81 mg 09/15/18 10:00 09/15/18 10:51 Baby Aspirin PO 81 mg DAILY ANTONI Administration Atorvastatin Calcium 40 mg 09/15/18 22:00 Lipitor PO QHS [facility] Enoxaparin Sodium 40 mg 09/15/18 22:00 Lovenox SUB-Q QDAY@2200 [facility] Hydromorphone HCl 0.5 mg 09/15/18 07:17 Dilaudid IV Q3H PRN Pain , Severe (7-10) Dextrose/Sodium Chloride 1,000 mls @ 75 mls/hr 09/15/18 08:00 D5ns IV 09/16/18 01:00 DIRECT ANTONI Latanoprost 1 drops 09/15/18 22:00 Latanoprost 0.005% OU HS ANTONI Levetiracetam 1,000 mg 09/15/18 10:00 09/15/18 10:45 Keppra PO 1,000 mg BID ANTONI Administration Levothyroxine Sodium 112 mcg 09/15/18 10:00 09/15/18 10:55 Synthroid PO 112 mcg 0600 ANTONI Administration Lorazepam 1 mg 09/14/18 19:16 09/14/18 19:21 Ativan IV 1 mg Q3H PRN Administration Seizures Ondansetron HCl 4 mg 09/15/18 07:16 09/15/18 11:02 Zofran IV 4 mg Q8H PRN Administration Nausea And Vomiting Oxycodone/Acetaminophen 1 tab 09/15/18 07:17 Percocet 5/325 PO Q6H PRN Pain, Moderate (4-6) Pantoprazole Sodium 40 mg 09/15/18 10:00 09/15/18 10:44 Protonix PO 40 mg DAILY ANTONI Administration Sodium Chloride 10 ml 09/15/18 10:00 09/15/18 10:52 Sodium Chloride Flush Syringe 10 Ml IV 10 ml BID ANTONI Administration Sodium Chloride 10 ml 09/15/18 07:16 Sodium Chloride Flush Syringe 10 Ml IV PRN PRN LINE FLUSH Nutrition/Malnutrition Assess - Dietary Evaluation Nutrition/Malnutrition Findings: Nutrition Notes Start: 09/15/18 13:55 Freq: Status: Active Protocol: Document 09/15/18 14:24 LM (Rec: 09/15/18 14:43 LM [id number]) Co-Sign 09/15/18 14:24 LP Nutrition Notes Need for Assessment generated from: Low BMI Initial or Follow up Assessment Current Diagnosis Stroke Current Diet Cardiac diet Labs/Tests Reviewed Pertinent Medications Reviewed Height 5 ft 5 in Weight 49.895 kg Usual Body Weight 47.7 kg [place] Body Weight (kg) 56.81 BMI 18.3 Weight Status Underweight Subjective/Other Information Screen for low BMI. Pt ate 50% of breakfast this morning. Pt daughter in room at time of visit. Pt and daughter stated that pt ate well prior to admission (3 meals/day). Pt said her usual body weight is 105 lb. Noticed muscle wasting in clavical and wrists. Burn Absent Trauma Absent #1 Nutrition Diagnosis Predicted suboptimal energy intake Etiology advanced age As Evidenced by Signs and Symptoms BMI of 18.3, UBW of 105 lb Is patient on ventilator? No Is Patient Ambulatory and/or Out of Bed No REE-([facility]-confined to bed) 1235.820 Kcal/Kg value to use for calculation 35 Approximate Energy Requirements Using 1746 kcal/Kg Calculation Used for Recommendations Kcal/kg Additional Notes Protein needs: 50-60g (1-1.2 g /kg) Fluid needs: 1 ml/kcal Nutrition Intervention Change Diet Order: Continue cardiac Add Supplement/Snack (indicate name/kcal Ensure Enlive BID /protein ) Provides kCal: 700 Provides Protein (gm) 40 Goal #1 Meet at least 75% of energy and protein needs Goal #2 Weight gain/maintenence Anticipated Discharge Needs: Cardiac diet Follow-Up By: 09/17/18 Additional Comments F/U: PO/ONS intakes, ONS causing gas?
--- NOTE | 2018-09-15 19:05 | Magnetic Resonance Report ---
PROCEDURE: MR BRAIN WO CON TECHNIQUE: Multiplanar multiecho imaging obtained of the brain without intravenous contrast. HISTORY: stroke COMPARISONS: Correlation is made with the prior noncontrast CT of the head from September 14. FINDINGS: The diffusion-weighted images show no evidence of diffusion restriction to suggest acute infarction. Encephalomalacia in the right temporoparietal region consistent with sequela from chronic infarction in the distribution of the right MCA. Hyperintensity surrounding the area of encephalomalacia, consis tent with gliosis. Scattered periventricular hyperintensities, best seen on FLAIR images, nonspecific and most likely ch ronic ischemic changes related to small vessel disease. Mild ex vacuo enlargement of the right lateral ventricle. No edema or sulcal effacement. Brain stem and posterior fossa are within normal limits. Orbits and paranasal sinuses within normal limits. Extra-axial mass bordering the left parietal convexity measuring approximately 1.1 cm in diameter cor responding to a calcified lesion seen on the prior CT examination and consistent with meningioma. IMPRESSION: . No evidence of acute infarction. Chronic infarction in the distribution of the right middle cerebral artery with encephalomalacia and surrounding gliosis. Scattered periventricular hyperintensities, nonspecific and most likely chronic ischemic changes rela kirstin to small vessel disease. Small extra-axial mass bordering the left parietal convexity measuring approximately 1.1 cm, correspo nding to calcified lesion seen on the prior CT examination and consistent with meningioma. This document is electronically signed by Soham Chaves MD., September 15 2018 07:03:43 PM ET
--- NOTE | 2018-09-15 19:11 | Magnetic Resonance Report ---
PROCEDURE: MR MRA/MRV HEAD WO CON TECHNIQUE: MRA of the brain performed with TOF technique without intravenous contrast. HISTORY: stroke COMPARISONS: Correlation is made with the prior MRI examination. FINDINGS: The intracranial internal carotid arteries are patent and symmetric. Patent and symmetric middle cerebral arteries bilaterally. Anterior cerebral arteries are patent. Questionable mild dilatation in the area of the anterior communicating artery. Small aneurysm cannot be excluded. Recommend further evaluation with contrast enhanced CTA with multiplane and 3-D reconstructions. The basilar artery is normal in course and caliber. There are patent posterior cerebral arteries bilaterally. IMPRESSION: Questionable mild dilatation in the area of the anterior communicating artery. Small aneurysm cannot be excluded. Recommend further evaluation with contrast-enhanced CTA with multiplane and 3-D reconstr uctions. No major intracranial vessel occlusion. This document is electronically signed by Soham Chaves MD., September 15 2018 07:08:54 PM ET
[2018-09-15] MEDS: LATANOPROST 0.005% OU SCH (21:06)
[2018-09-15] MEDS: LOVENOX SUB-Q SCH (21:06)
[2018-09-16] MEDS: SYNTHROID PO SCH (05:01)
[2018-09-16 05:39] LABS: Basophils % (Auto) 1.1 % (0.0-1.8); Eosinophils % (Auto) 1.1 % (0.0-4.3); Hematocrit 38.8 % (30.3-42.9); Hemoglobin 12.6 gm/dl (10.1-14.3); Lymphocytes % (Auto) 26.1 % (13.4-35.0); Mean Corpuscular HGB Conc 32 % (30-34); Mean Corpuscular Volume 85 fl (79-97); Monocytes # (Auto) 0.5 K/mm3 (0.0-0.8); Monocytes % (Auto) 13.3 % (0.0-7.3); Platelet Count 212 K/mm3 (140-440); Red Blood Count 4.59 M/mm3 (3.65-5.03); Red Cell Distribution Width 13.9 % (13.2-15.2)
[2018-09-16 05:49] LABS: Alanine Aminotransferase 11 units/L (7-56); Albumin 3.8 g/dL (3.9-5); BUN/Creatinine Ratio 27; Blood Urea Nitrogen 16 mg/dL (7-17); Calcium 9.2 mg/dL (8.4-10.2); Chol/HDL Ratio 1.77 %; HDL Cholesterol 68 mg/dL (40-59); Hemolysis Index 3; LDL Cholesterol,Direct 53 mg/dL (50-130)
[2018-09-16] MEDS: BABY ASPIRIN PO SCH (09:40)
[2018-09-16] MEDS: PROTONIX PO SCH (09:41)
[2018-09-16] MEDS: KEPPRA PO SCH ×2 (09:52→21:35)
[2018-09-16] MEDS: SODIUM CHLORIDE FLUSH SYRINGE 10 ML IV SCH ×2 (09:54→21:36)
--- NOTE | 2018-09-16 13:04 | Progress Note ---
Assessment and Plan Assessment and plan: Patient is a 68-year-old woman with history of CVA who presents with multiple seizures, AMS, weak in LUE and LLE weakness * CT Head IMPRESSION: When compared to prior study of 05/26/2018 Again there is an area of encephalomalacia stable in appearance in the right MCA distribution with compensatory dilatation of the right lateral ventricle Again there is assumed small meningioma inner table of the superior midportion of the left parietal bone follow up MRI would be helpful to best evaluate this finding which appears to have slightly increased by approximately 3 mm in size prior study, but this could be due to slice selection artifact Otherwise the study is stable * MRI brain wo contrast IMPRESSION: . No evidence of acute infarction. Chronic infarction in the distribution of the right middle cerebral artery with encephalomalacia and surrounding gliosis. Scattered periventricular hyperintensities, nonspecific and most likely chronic ischemic changes related to small vessel disease. Small extra-axial mass bordering the left parietal convexity measuring approximately 1.1 cm, corresponding to calcified lesion seen on the prior CT examination and consistent with meningioma. * MRA brain wo contrast IMPRESSION: Questionable mild dilatation in the area of the anterior communicating artery. Small aneurysm cannot be excluded. Recommend further evaluation with contrast-enhanced CTA with multiplane and 3- D reconstructions. No major intracranial vessel occlusion. -Status epilepticus: increase keppra dose, until daughter can verify how much keppra was actually taking, EEG pending, -Meningioma: Neurology is following -Acute metabolic encephalopathy -Rule out Acute CVA (cerebrovascular accident) with MRI brain but defer to Neurology -HLD (hyperlipidemia) COnt Statins -GERD (gastroesophageal reflux disease) ppi -Hypothyroidism, low TSH: stopped the synthroid -Glaucoma: cont Latanoprost -DVT prophylaxis: On Lovenox and GI prophylaxis TSH 00.5 History Interval history: Patient was seen and examined. Follow-up on current diagnosis of Seizures. O vernight uneventful. Patient denies any chest pain, shortness breath, nausea/vomiting or severe headaches. Imaging, nursing note, chart, labs and old chart reviewed. Discussed with patient. Daughter Sivan witnessed multiple seizures. Home meds reviewed and patient gave 5 different story regarding how much and when she takes her keppra, she suppose to take 500mg 2 tabs po qhs Hospitalist Physical - Physical exam Narrative exam: Gen: thin frail, cachetic, bmi 18, NAD, Awake, Alert, Orientated x 1 HEENT: NCAT, EOMI, PERRL, OP Clear Neck: supple, no adenopathy, no thyromegaly, no JVD CVS/Heart: RRR, normal S1S2, pulses present bilaterally Chest/Lungs: CTA B, Symmetrical chest expansion, good air entry bilaterally GI/Abdomen: soft, NTND, good bowel sounds, no guarding or rebound /Bladder: no suprapubic tenderness, no CVA or paraspinal tenderness Extermity/Skin: no c/c/e, no obvious rash MSK: FROM x 4 Neuro: CN 2-12 grossly intact, no new focal deficits Psych: calm - Constitutional Vitals: Temp Pulse Resp BP Pulse Ox 98.3 F 91 H 18 125/71 99 09/16/18 00:16 09/16/18 00:16 09/16/18 00:16 09/16/18 00:16 09/16/18 00:16 General appearance: Present: no acute distress, well-nourished Results - Labs CBC & Chem 7: 09/16/18 04:53 09/16/18 04:53 Labs: Laboratory Last Values WBC 3.9 K/mm3 (4.5-11.0) L 09/16/18 04:53 RBC 4.59 M/mm3 (3.65-5.03) 09/16/18 04:53 Hgb 12.6 gm/dl (10.1-14.3) 09/16/18 04:53 Hct 38.8 % (30.3-42.9) 09/16/18 04:53 MCV 85 fl (79-97) 09/16/18 04:53 MCH 27 pg (28-32) L 09/16/18 04:53 MCHC 32 % (30-34) 09/16/18 04:53 RDW 13.9 % (13.2-15.2) 09/16/18 04:53 Plt Count 212 K/mm3 (140-440) 09/16/18 04:53 Lymph % (Auto) 26.1 % (13.4-35.0) 09/16/18 04:53 [place] % (Auto) 13.3 % (0.0-7.3) H 09/16/18 04:53 Eos % (Auto) 1.1 % (0.0-4.3) 09/16/18 04:53 Baso % (Auto) 1.1 % (0.0-1.8) 09/16/18 04:53 Lymph # 1.0 K/mm3 (1.2-5.4) L 09/16/18 04:53 [place] # 0.5 K/mm3 (0.0-0.8) 09/16/18 04:53 Eos # 0.0 K/mm3 (0.0-0.4) 09/16/18 04:53 Baso # 0.0 K/mm3 (0.0-0.1) 09/16/18 04:53 Seg Neutrophils % 58.4 % (40.0-70.0) 09/16/18 04:53 Seg Neutrophils # 2.3 K/mm3 (1.8-7.7) 09/16/18 04:53 PT 13.1 Sec. (12.2-14.9) 09/14/18 16:28 INR 0.94 (0.87-1.13) 09/14/18 16:28 APTT 28.6 Sec. (24.2-36.6) 09/14/18 16:28 Thrombin Time 16.7 Sec. (15.1-19.6) 09/14/18 16:28 Sodium 142 mmol/L (137-145) 09/16/18 04:53 Potassium 3.8 mmol/L (3.6-5.0) 09/16/18 04:53 Chloride 109.2 mmol/L (98-107) H 09/16/18 04:53 Carbon Dioxide 24 mmol/L (22-30) 09/16/18 04:53 Anion Gap 13 mmol/L 09/16/18 04:53 BUN 16 mg/dL (7-17) 09/16/18 04:53 Creatinine 0.6 mg/dL (0.7-1.2) L 09/16/18 04:53 Estimated GFR > 60 ml/min 09/16/18 04:53 BUN/Creatinine Ratio 27 % 09/16/18 04:53 Glucose 116 mg/dL (65-100) H 09/16/18 04:53 POC Glucose 102 (70-105) 09/16/18 08:14 Hemoglobin A1c 5.6 % (4-6) 09/15/18 07:46 Calcium 9.2 mg/dL (8.4-10.2) 09/16/18 04:53 Total Bilirubin 0.50 mg/dL (0.1-1.2) 09/16/18 04:53 AST 20 units/L (5-40) 09/16/18 04:53 ALT 11 units/L (7-56) 09/16/18 04:53 Alkaline Phosphatase 63 units/L (35-129) 09/16/18 04:53 Troponin T < 0.010 ng/mL (0.00-0.029) 09/14/18 16:28 Total Protein 6.6 g/dL (6.3-8.2) 09/16/18 04:53 Albumin 3.8 g/dL (3.9-5) L 09/16/18 04:53 Albumin/Globulin Ratio 1.4 % 09/16/18 04:53 Triglycerides 45 mg/dL (2-149) 09/16/18 04:53 Cholesterol 121 mg/dL (50-199) 09/16/18 04:53 LDL Cholesterol Direct 53 mg/dL (50-130) 09/16/18 04:53 HDL Cholesterol 68 mg/dL (40-59) H 09/16/18 04:53 Cholesterol/HDL Ratio 1.77 % 09/16/18 04:53 TSH 0.005 mlU/mL (0.270-4.200) L 09/15/18 11:22 Urine Color Straw (Yellow) 09/15/18 01:15 Urine Turbidity Clear (Clear) 09/15/18 01:15 Urine pH 7.0 (5.0-7.0) 09/15/18 01:15 Ur Specific [place] 1.008 (1.003-1.030) 09/15/18 01:15 Urine Protein <15 mg/dl mg/dL (Negative) 09/15/18 01:15 Urine Glucose (UA) Neg mg/dL (Negative) 09/15/18 01:15 Urine Ketones Neg mg/dL (Negative) 09/15/18 01:15 Urine Blood Neg (Negative) 09/15/18 01:15 Urine Nitrite Neg (Negative) 09/15/18 01:15 Urine Bilirubin Neg (Negative) 09/15/18 01:15 Urine Urobilinogen < 2.0 mg/dL (<2.0) 09/15/18 01:15 Ur Leukocyte Esterase Neg (Negative) 09/15/18 01:15 Urine WBC (Auto) < 1.0 /HPF (0.0-6.0) 09/15/18 01:15 Urine RBC (Auto) 3.0 /HPF (0.0-6.0) 09/15/18 01:15 U Epithel Cells (Auto) < 1.0 /HPF (0-13.0) 09/15/18 01:15 Active Medications - Current Medications Current Medications: Generic Name Dose Route Start Last Admin Trade Name Freq PRN Reason Stop Dose Admin Acetaminophen 650 mg 09/15/18 07:16 09/15/18 10:46 Tylenol PO 650 mg Q4H PRN Administration Pain MILD(1-3)/Fever >100.5/COOMBS Aspirin 81 mg 09/15/18 10:00 09/16/18 09:40 Baby Aspirin PO 81 mg DAILY ANTONI Administration Atorvastatin Calcium 40 mg 09/15/18 22:00 09/15/18 21:06 Lipitor PO 40 mg QHS ANTONI Administration Enoxaparin Sodium 40 mg 09/15/18 22:00 09/15/18 21:06 Lovenox SUB-Q 40 mg QDAY@2200 ANTONI Administration Hydromorphone HCl 0.5 mg 09/15/18 07:17 Dilaudid IV Q3H PRN Pain , Severe (7-10) Latanoprost 1 drops 09/15/18 22:00 09/15/18 21:06 Latanoprost 0.005% OU 1 drops HS ANTONI Administration Levetiracetam 1,000 mg 09/15/18 10:00 09/16/18 09:52 Keppra PO 1,000 mg BID ANTONI Administration Levothyroxine Sodium 112 mcg 09/15/18 10:00 09/16/18 05:01 Synthroid PO 112 mcg 0600 ANTONI Administration Lorazepam 1 mg 09/14/18 19:16 09/14/18 19:21 Ativan IV 1 mg Q3H PRN Administration Seizures Ondansetron HCl 4 mg 09/15/18 07:16 09/15/18 11:02 Zofran IV 4 mg Q8H PRN Administration Nausea And Vomiting Oxycodone/Acetaminophen 1 tab 09/15/18 07:17 Percocet 5/325 PO Q6H PRN Pain, Moderate (4-6) Pantoprazole Sodium 40 mg 09/15/18 10:00 09/16/18 09:41 Protonix PO 40 mg DAILY ANTONI Administration Sodium Chloride 10 ml 09/15/18 10:00 09/16/18 09:54 Sodium Chloride Flush Syringe 10 Ml IV 10 ml BID ANTONI Administration Sodium Chloride 10 ml 09/15/18 07:16 Sodium Chloride Flush Syringe 10 Ml IV PRN PRN LINE FLUSH Nutrition/Malnutrition Assess - Dietary Evaluation Nutrition/Malnutrition Findings: Nutrition Notes Start: 09/15/18 13:55 Freq: Status: Active Protocol: Document 09/15/18 14:24 LM (Rec: 09/15/18 14:43 LM [id number]) Co-Sign 09/15/18 14:24 LP Nutrition Notes Need for Assessment generated from: Low BMI Initial or Follow up Assessment Current Diagnosis Stroke Current Diet Cardiac diet Labs/Tests Reviewed Pertinent Medications Reviewed Height 5 ft 5 in Weight 49.895 kg Usual Body Weight 47.7 kg [place] Body Weight (kg) 56.81 BMI 18.3 Weight Status Underweight Subjective/Other Information Screen for low BMI. Pt ate 50% of breakfast this morning. Pt daughter in room at time of visit. Pt and daughter stated that pt ate well prior to admission (3 meals/day). Pt said her usual body weight is 105 lb. Noticed muscle wasting in clavical and wrists. Burn Absent Trauma Absent #1 Nutrition Diagnosis Predicted suboptimal energy intake Etiology advanced age As Evidenced by Signs and Symptoms BMI of 18.3, UBW of 105 lb Is patient on ventilator? No Is Patient Ambulatory and/or Out of Bed No REE-([facility]-confined to bed) 1235.820 Kcal/Kg value to use for calculation 35 Approximate Energy Requirements Using 1746 kcal/Kg Calculation Used for Recommendations Kcal/kg Additional Notes Protein needs: 50-60g (1-1.2 g /kg) Fluid needs: 1 ml/kcal Nutrition Intervention Change Diet Order: Continue cardiac Add Supplement/Snack (indicate name/kcal Ensure Enlive BID /protein ) Provides kCal: 700 Provides Protein (gm) 40 Goal #1 Meet at least 75% of energy and protein needs Goal #2 Weight gain/maintenence Anticipated Discharge Needs: Cardiac diet Follow-Up By: 09/17/18 Additional Comments F/U: PO/ONS intakes, ONS causing gas?
--- NOTE | 2018-09-16 13:47 | Progress Note ---
Subjective Date of service: 09/16/18 Interval history: did review the MRI/ MRA and couple of comments first the very small extara axial area over the left pariental lbe has the appearance of very small meningioma no edema around this and very unlekely this is causing any issues there is oldd storke but no acute stroke the area in the MRA of the dilated SARAVANAN is noted and doubt this nees w/u at this time because we'd need CTA and based on old stroke no clinically indicated but I will have to go over the old records the ECHOcardiogram most important issue to exclude dembolus Objective - Laboratory Findings CBC and BMP: 09/16/18 04:53 09/16/18 04:53 Abnormal Lab Findings: Abnormal Labs 09/14/18 09/14/18 09/15/18 16:28 16:28 11:[address] % (Auto) 9.0 H Lymph # 0.8 L Seg Neutrophils % 72.1 H Chloride Creatinine Glucose 108 H POC Glucose Albumin HDL Cholesterol TSH 0.005 L 09/15/18 09/16/18 09/16/18 21:07 04:53 04:53 WBC 3.[address] % (Auto) 13.3 H Lymph # 1.0 L Seg Neutrophils % Chloride 109.2 H Creatinine 0.6 L Glucose 116 H POC Glucose 120 H Albumin 3.8 L HDL Cholesterol 68 H TSH
--- NOTE | 2018-09-16 19:17 | Cat Scan Report ---
PROCEDURE: CT ANGIO HEAD TECHNIQUE: Following administration of IV contrast axial helical imaging was performed through the b rain with sagittal and coronal reformatted images and maximum intensity projection images obtained. HISTORY: ams, weakness left upper arm COMPARISONS: MRI brain and MRA brain dated September [address] angiogram neck also performed today. FINDINGS: There is the appearance of an approximately 3 mm x 1.5 mm x 2.4 mm aneurysm arising from the anterior communicating artery. The aneurysm is directed cranially. There is no other evidence of aneurysm and no evidence of occlusion or hemodynamically significant st enosis of the major intracranial arteries. Again noted is the chronic infarct in the right frontal and temporal lobes and insular cortex in the right middle cerebral artery distribution. Ventricular size is concordant with the degree of atrophy/volume loss. IMPRESSION: 1. Appearance of an approximately 3 mm x 1.5 mm x 2.4 mm aneurysm arising from the anterior communica ting artery as was suspected on the previous MRA brain dated September 15, 2018. 2. Otherwise unremarkable CT angiogram brain. This document is electronically signed by Mahsa Bernard MD., September 16 2018 07:15:12 PM ET
[2018-09-16] MEDS: LOVENOX SUB-Q SCH (21:35)
[2018-09-16] MEDS: LATANOPROST 0.005% OU SCH (21:36)
--- NOTE | 2018-09-16 22:05 | Vascular Lab Report ---
PROCEDURE: VL CAROTID DUPLEX BILAT TECHNIQUE: Duplex Doppler ultrasound of the common, internal and external carotid arteries and the v ertebral arteries was performed bilaterally. [place]illa scale imaging, velocity spectral waveform analysis, and color flow Doppler were employed. HISTORY: stroke COMPARISONS: None . Note: Measurement of carotid stenosis is based on flow velocity values that correlate with the [place] Symptomatic Carotid Endarterectomy Trial (NASCET) based stenosis criteria using the internal carotid artery diameter as the denominator for stenosis calculation. FINDINGS: RIGHT carotid artery: Velocities: ICA PSV: 70 cm/sec ICA End diastolic: 22 cm/sec CCA PSV: 61 cm/sec IC/CC ratio: 1.1 Plaque/: Mild degree soft plaque is noted. RIGHT vertebral artery: Antegrade systolic and diastolic flow LEFT carotid artery: Velocities: ICA PSV: 111 cm/sec ICA End diastolic: 38 cm/sec CCA PSV: 82 cm/sec IC/CC ratio: 1.3 Plaque: Mild degree of soft plaque is noted. LEFT vertebral artery: Antegrade systolic and diastolic flow IMPRESSION: 1. RIGHT carotid: No hemodynamically significant (less than 50 percent) internal carotid artery tani nosis. 2. LEFT carotid: No hemodynamically significant (less than 50 percent) internal carotid artery sten osis. 3. Vertebral arteries: Bilaterally antegrade. This document is electronically signed by Isak Melton MD., September 16 2018 10:03:20 PM ET
--- NOTE | 2018-09-16 22:20 | Cat Scan Report ---
PROCEDURE: CT ANGIO NECK TECHNIQUE: Computerized tomographic angiography of the neck was performed after the IV injection of iodinated nonionic contrast including image processing. The image data was postprocessed using 2-dime nsional multiplanar reformatted (MPR) and 3-dimensional (MIP and/or volume rendered) techniques. CT DOSE LENGTH PRODUCT: mGycm HISTORY: ams, weakness left upper arm COMPARISONS: None . Note: Assessment of carotid artery stenosis is based on measurement of the distal internal carotid a rtery diameter as the denominator for stenosis calculations and the [place] Symptomatic Caroti d Endarterectomy Trial (NASCET) stenosis criteria. FINDINGS: Sinuses: Visualized bilateral maxillary sinuses are clear. . Non vascular cervical structures: Moderate degree broad-based disc osteophyte complex is noted at C4- 5 resulting in mild degree spinal canal stenosis. Moderate degree left neural frontal stenosis is not ed at C4-5 secondary to uncovertebral degenerative changes. Aortic arch: Normal . Right carotid artery: Normal . Left carotid artery: Normal . Vertebral arteries: Normal . IMPRESSION: Unremarkable CTA of neck. Cervical spondylosis as described above.. This document is electronically signed by Isak Melton MD., September 16 2018 10:18:33 PM ET
--- NOTE | 2018-09-17 07:48 | Progress Note ---
Assessment and Plan Assessment and plan: Patient is a 68-year-old woman with history of CVA and seizures who presents with multiple seizures, AMS, weak in LUE and LLE weakness * CT Head IMPRESSION: When compared to prior study of 05/26/2018 Again there is an area of encephalomalacia stable in appearance in the right MCA distribution with compensatory dilatation of the right lateral ventricle Again there is assumed small meningioma inner table of the superior midportion of the left parietal bone follow up MRI would be helpful to best evaluate this finding which appears to have slightly increased by approximately 3 mm in size prior study, but this could be due to slice selection artifact Otherwise the study is stable * MRI brain wo contrast IMPRESSION: . No evidence of acute infarction. Chronic infarction in the distribution of the right middle cerebral artery with encephalomalacia and surrounding gliosis. Scattered periventricular hy perintensities, nonspecific and most likely chronic ischemic changes related to small vessel disease. Small extra-axial mass bordering the left parietal convexity measuring approximately 1.1 cm, corresponding to calcified lesion seen on the prior CT examination and consistent with meningioma. * MRA brain wo contrast IMPRESSION: Questionable mild dilatation in the area of the anterior communicating artery. Small aneurysm cannot be excluded. Recommend further evaluation with contrast-enhanced CTA with multiplane and 3- D reconstructions. No major intracranial vessel occlusion. * CTA head IMPRESSION: 1. Appearance of an approximately 3 mm x 1.5 mm x 2.4 mm aneurysm arising from the anterior communicating artery as was suspected on the previous MRA brain dated September 15, 2018. 2. Otherwise unremarkable CT angiogram brain. * CTA neck IMPRESSION: Unremarkable CTA of neck. Cervical spondylosis as described above.. * TTE limited views Conclusions: Poor quality study, no color doppler, inform ation for evaluation of valvular regurgitation, there is marked echogenicity of the interatrial septum, appears consistent with a foreign body, i.e. clamshell device, contrast saline study is negative for PFO, global left ventricular systolic function is normal, estimated EF 55-60%, mild concentric left ventricular hypertrophy is observed, right atrium is mildly dilated, mild dilatation of the aortic root which measures 4.0 cm, the ascending aorta measures 3.25 cm -Status epilepticus: increase keppra dose, until daughter can verify how much keppra was actually taking, EEG pending, -Meningioma: Neurology is following -Acute metabolic encephalopathy -Rule out Acute CVA (cerebrovascular accident) with MRI brain but defer to Neurology -HLD (hyperlipidemia) COnt Statins -GERD (gastroesophageal reflux disease) ppi -Hypothyroidism, low TSH at .005: stopped the synthroid, no Scout Sniper available here -Glaucoma: cont Latanoprost -DVT prophylaxis: On Lovenox and GI prophylaxis -SARAVANAN aneurysm: consult Vascular, no CT surgery/NSY here -Abnormal ECHO with ?foreign body, dilated aortic root: consulted Cardiology -4 beat run of NSVT at ~9:30am, I notified Cardiology Reviewed Vascular surgery recommendation then I called [facility] at [phone] and spoke with Norma and gave her vitals and clinical summary. I am requesting Neurosurgery physician, services not offered here CCT 32 minutes History Interval history: Patient was seen and examined. Follow-up on current diagnosis of Seizures. Overnight uneventful. Patient denies any chest pain, shortness breath, nausea/vomiting or severe headaches. Imaging, nursing note, chart, labs and old chart reviewed. Discussed with patient. Daughter Sivan witnessed multiple seizures. Home meds reviewed and patient gave 5 different story regarding how much and when she takes her keppra, she suppose to take 500mg 2 tabs po qhs Hospitalist Physical - Physical exam Narrative exam: Gen: thin frail, cachetic, bmi 18, NAD, Awake, Alert, Orientated x 1 HEENT: NCAT, EOMI, PERRL, OP Clear Neck: supple, no adenopathy, no thyromegaly, no JVD CVS/Heart: RRR, normal S1S2, pulses present bilaterally Chest/Lungs: CTA B, Symmetrical chest expansion, good air entry bilaterally GI/Abdomen: soft, NTND, good bowel sounds, no guarding or rebound /Bladder: no suprapubic tenderness, no CVA or paraspinal tenderness Extermity/Skin: no c/c/e, no obvious rash MSK: FROM x 4 Neuro: CN 2-12 grossly intact, no new focal deficits Psych: calm - Constitutional Vitals: Temp Pulse Resp BP Pulse Ox 98.5 F 84 12 104/80 100 09/17/18 03:38 09/17/18 03:38 09/17/18 03:38 09/17/18 03:38 09/17/18 03:38 General appearance: Present: no acute distress, well-nourished Results - Labs CBC & Chem 7: 09/16/18 04:53 09/16/18 04:53 Labs: Laboratory Last Values WBC 3.9 K/mm3 (4.5-11.0) L 09/16/18 04:53 RBC 4.59 M/mm3 (3.65-5.03) 09/16/18 04:53 Hgb 12.6 gm/dl (10.1-14.3) 09/16/18 04:53 Hct 38.8 % (30.3-42.9) 09/16/18 04:53 MCV 85 fl (79-97) 09/16/18 04:53 MCH 27 pg (28-32) L 09/16/18 04:53 MCHC 32 % (30-34) 09/16/18 04:53 RDW 13.9 % (13.2-15.2) 09/16/18 04:53 Plt Count 212 K/mm3 (140-440) 09/16/18 04:53 Lymph % (Auto) 26.1 % (13.4-35.0) 09/16/18 04:53 [place] % (Auto) 13.3 % (0.0-7.3) H 09/16/18 04:53 Eos % (Auto) 1.1 % (0.0-4.3) 09/16/18 04:53 Baso % (Auto) 1.1 % (0.0-1.8) 09/16/18 04:53 Lymph # 1.0 K/mm3 (1.2-5.4) L 09/16/18 04:53 [place] # 0.5 K/mm3 (0.0-0.8) 09/16/18 04:53 Eos # 0.0 K/mm3 (0.0-0.4) 09/16/18 04:53 Baso # 0.0 K/mm3 (0.0-0.1) 09/16/18 04:53 Seg Neutrophils % 58.4 % (40.0-70.0) 09/16/18 04:53 Seg Neutrophils # 2.3 K/mm3 (1.8-7.7) 09/16/18 04:53 PT 13.1 Sec. (12.2-14.9) 09/14/18 16:28 INR 0.94 (0.87-1.13) 09/14/18 16:28 APTT 28.6 Sec. (24.2-36.6) 09/14/18 16:28 Thrombin Time 16.7 Sec. (15.1-19.6) 09/14/18 16:28 Sodium 142 mmol/L (137-145) 09/16/18 04:53 Potassium 3.8 mmol/L (3.6-5.0) 09/16/18 04:53 Chloride 109.2 mmol/L (98-107) H 09/16/18 04:53 Carbon Dioxide 24 mmol/L (22-30) 09/16/18 04:53 Anion Gap 13 mmol/L 09/16/18 04:53 BUN 16 mg/dL (7-17) 09/16/18 04:53 Creatinine 0.6 mg/dL (0.7-1.2) L 09/16/18 04:53 Estimated GFR > 60 ml/min 09/16/18 04:53 BUN/Creatinine Ratio 27 % 09/16/18 04:53 Glucose 116 mg/dL (65-100) H 09/16/18 04:53 POC Glucose 128 (70-105) H 09/16/18 21:02 Hemoglobin A1c 5.6 % (4-6) 09/15/18 07:46 Calcium 9.2 mg/dL (8.4-10.2) 09/16/18 04:53 Total Bilirubin 0.50 mg/dL (0.1-1.2) 09/16/18 04:53 AST 20 units/L (5-40) 09/16/18 04:53 ALT 11 units/L (7-56) 09/16/18 04:53 Alkaline Phosphatase 63 units/L (35-129) 09/16/18 04:53 Troponin T < 0.010 ng/mL (0.00-0.029) 09/14/18 16:28 Total Protein 6.6 g/dL (6.3-8.2) 09/16/18 04:53 Albumin 3.8 g/dL (3.9-5) L 09/16/18 04:53 Albumin/Globulin Ratio 1.4 % 09/16/18 04:53 Triglycerides 45 mg/dL (2-149) 09/16/18 04:53 Cholesterol 121 mg/dL (50-199) 09/16/18 04:53 LDL Cholesterol Direct 53 mg/dL (50-130) 09/16/18 04:53 HDL Cholesterol 68 mg/dL (40-59) H 09/16/18 04:53 Cholesterol/HDL Ratio 1.77 % 09/16/18 04:53 TSH 0.005 mlU/mL (0.270-4.200) L 09/15/18 11:22 Urine Color Straw (Yellow) 09/15/18 01:15 Urine Turbidity Clear (Clear) 09/15/18 01:15 Urine pH 7.0 (5.0-7.0) 09/15/18 01:15 Ur Specific [place] 1.008 (1.003-1.030) 09/15/18 01:15 Urine Protein <15 mg/dl mg/dL (Negative) 09/15/18 01:15 Urine Glucose (UA) Neg mg/dL (Negative) 09/15/18 01:15 Urine Ketones Neg mg/dL (Negative) 09/15/18 01:15 Urine Blood Neg (Negative) 09/15/18 01:15 Urine Nitrite Neg (Negative) 09/15/18 01:15 Urine Bilirubin Neg (Negative) 09/15/18 01:15 Urine Urobilinogen < 2.0 mg/dL (<2.0) 09/15/18 01:15 Ur Leukocyte Esterase Neg (Negative) 09/15/18 01:15 Urine WBC (Auto) < 1.0 /HPF (0.0-6.0) 09/15/18 01:15 Urine RBC (Auto) 3.0 /HPF (0.0-6.0) 09/15/18 01:15 U Epithel Cells (Auto) < 1.0 /HPF (0-13.0) 09/15/18 01:15 Active Medications - Current Medications Current Medications: Generic Name Dose Route Start Last Admin Trade Name Freq PRN Reason Stop Dose Admin Acetaminophen 650 mg 09/15/18 07:16 09/15/18 10:46 Tylenol PO 650 mg Q4H PRN Administration Pain MILD(1-3)/Fever >100.5/COOMBS Aspirin 81 mg 09/15/18 10:00 09/16/18 09:40 Baby Aspirin PO 81 mg DAILY ANTONI Administration Atorvastatin Calcium 40 mg 09/15/18 22:00 09/16/18 21:36 Lipitor PO 40 mg QHS ANTONI Administration Enoxaparin Sodium 40 mg 09/15/18 22:00 09/16/18 21:35 Lovenox SUB-Q 40 mg QDAY@2200 ANTONI Administration Hydromorphone HCl 0.5 mg 09/15/18 07:17 Dilaudid IV Q3H PRN Pain , Severe (7-10) Latanoprost 1 drops 09/15/18 22:00 09/16/18 21:36 Latanoprost 0.005% OU 1 drops HS ANTONI Administration Levetiracetam 1,000 mg 09/15/18 10:00 09/16/18 21:35 Keppra PO 1,000 mg BID ANTONI Administration Lorazepam 1 mg 09/14/18 19:16 09/14/18 19:21 Ativan IV 1 mg Q3H PRN Administration Seizures Ondansetron HCl 4 mg 09/15/18 07:16 09/15/18 11:02 Zofran IV 4 mg Q8H PRN Administration Nausea And Vomiting Oxycodone/Acetaminophen 1 tab 09/15/18 07:17 Percocet 5/325 PO Q6H PRN Pain, Moderate (4-6) Pantoprazole Sodium 40 mg 09/15/18 10:00 09/16/18 09:41 Protonix PO 40 mg DAILY ANTONI Administration Sodium Chloride 10 ml 09/15/18 10:00 09/16/18 21:36 Sodium Chloride Flush Syringe 10 Ml IV 10 ml BID ANTONI Administration Sodium Chloride 10 ml 09/15/18 07:16 Sodium Chloride Flush Syringe 10 Ml IV PRN PRN LINE FLUSH Nutrition/Malnutrition Assess - Dietary Evaluation Nutrition/Malnutrition Findings: Nutrition Notes Start: 09/15/18 13:55 Freq: Status: Active Protocol: Document 09/15/18 14:24 LM (Rec: 09/15/18 14:43 LM [id number]) Co-Sign 09/15/18 14:24 LP Nutrition Notes Need for Assessment generated from: Low BMI Initial or Follow up Assessment Current Diagnosis Stroke Current Diet Cardiac diet Labs/Tests Reviewed Pertinent Medications Reviewed Height 5 ft 5 in Weight 49.895 kg Usual Body Weight 47.7 kg [place] Body Weight (kg) 56.81 BMI 18.3 Weight Status Underweight Subjective/Other Information Screen for low BMI. Pt ate 50% of breakfast this morning. Pt daughter in room at time of visit. Pt and daughter stated that pt ate well prior to admission (3 meals/day). Pt said her usual body weight is 105 lb. Noticed muscle wasting in clavical and wrists. Burn Absent Trauma Absent #1 Nutrition Diagnosis Predicted suboptimal energy intake Etiology advanced age As Evidenced by Signs and Symptoms BMI of 18.3, UBW of 105 lb Is patient on ventilator? No Is Patient Ambulatory and/or Out of Bed No REE-([facility]-confined to bed) 1235.820 Kcal/Kg value to use for calculation 35 Approximate Energy Requirements Using 1746 kcal/Kg Calculation Used for Recommendations Kcal/kg Additional Notes Protein needs: 50-60g (1-1.2 g /kg) Fluid needs: 1 ml/kcal Nutrition Intervention Change Diet Order: Continue cardiac Add Supplement/Snack (indicate name/kcal Ensure Enlive BID /protein ) Provides kCal: 700 Provides Protein (gm) 40 Goal #1 Meet at least 75% of energy and protein needs Goal #2 Weight gain/maintenence Anticipated Discharge Needs: Cardiac diet Follow-Up By: 09/17/18 Additional Comments F/U: PO/ONS intakes, ONS causing gas?
--- NOTE | 2018-09-17 09:58 | Event Note ---
<EWELINA XAVIER - Last Filed: 09/17/18 09:52> Date: 09/17/18 Asked to evaluate pt for: Appearance of an approximately 3 mm x 1.5 mm x 2.4 mm aneurysm arising from the anterior communicating artery as was suspected on the previous MRA brain dated September 15, 2018. ...Which was found on CTA of the Head. This is outside our area of expertise. Recommend contacting Neurosurgery or Neuro-Interventional radiology to discuss, urgency of work up given the pt's current medical issues. This likely would need to be discussed with an outside facility as those services are not available at [facility] to my knowledge. <SABIHA GAGNON - Last Filed: 09/17/18 10:12> Agree. CTA shows no carotid disease in the neck. We have no expertise in the management of intracranial aneurysms. Recommend neurology or neurosurgery evaluation.
[2018-09-17] MEDS: BABY ASPIRIN PO SCH (10:04)
[2018-09-17] MEDS: PROTONIX PO SCH (10:04)
[2018-09-17] MEDS: KEPPRA PO SCH (10:05)
[2018-09-17] MEDS: SODIUM CHLORIDE FLUSH SYRINGE 10 ML IV SCH (10:06)
--- NOTE | 2018-09-17 10:50 | Consultation ---
History of Present Illness Consult date: 09/17/18 Consult reason: other (NSVT) History of present illness: This is a 68 year old woman who presented 09/14 with altered mental status and is undergoing evaluation and workup by neurology. A CT angiogram of the head reports an appearance of an approximately 3 mm x 1.5 mm x 2.4 mm aneurysm arising from the anterior communicating artery as suspected on MRA brain dated 09/15. A limited echocardiogram revealed an interatrial septum device. Bubble study is negative. There is mild dilatation of the aortic root measuring 4.0 cm. Normal left ventricular systolic function, EF 55%. A cardiac consultation was requested for short burst of non-sustained v entricular tachycardia seen on telemetry monitoring. Patient denies palpitation, shortness of breath and chest pain. She has not had any dizziness. She has a TSH of 0.005. Her presenting ECG shows sinus rhythm, no acute ischemic changes. Patient gives a history of atrial septum device implanted 5 years ago while living in [place]. There is no reported history of coronary artery disease. She has a prior medical history of CVA, hyperlipidemia, hypothyroidism, GERD, and seizure disorder. Medications and Allergies Allergies Allergy/AdvReac Type Severity Reaction Status Date / Time mushroom Allergy Anaphylaxis Verified 05/26/18 22:14 shrimp Allergy Anaphylaxis Verified 05/26/18 22:14 Home Medications Medication Instructions Recorded Confirmed Last Taken Type AtorvaSTATin [Lipitor] 20 mg PO HS 05/26/18 09/14/18 05/26/18 History Pantoprazole [Protonix TAB] 40 mg PO DAILY 05/26/18 09/14/18 05/26/18 History levETIRAcetam [Levetiracetam] 1,000 mg PO DAILY 05/26/18 09/14/18 05/25/18 History Aspirin 81 mg PO DAILY #30 tab.chew 05/28/18 09/14/18 Unknown Rx Latanoprost [Xalatan] 1 drop OU HS 09/14/18 09/14/18 Unknown History Levothyroxine Sodium [Synthroid] 112 mcg PO QDAY 09/14/18 09/14/18 Unknown History Active Meds: Active Medications Acetaminophen (Tylenol) 650 mg PO Q4H PRN PRN Reason: Pain MILD(1-3)/Fever >100.5/COOMBS Last Admin: 09/15/18 10:46 Dose: 650 mg Documented by: Aspirin (Baby Aspirin) 81 mg PO DAILY [facility] Last Admin: 09/17/18 10:04 Dose: 81 mg Documented by: Atorvastatin Calcium (Lipitor) 40 mg PO QHS [facility] Last Admin: 09/16/18 21:36 Dose: 40 mg Documented by: Enoxaparin Sodium (Lovenox) 40 mg SUB-Q QDAY@2200 [facility] Last Admin: 09/16/18 21:35 Dose: 40 mg Documented by: Hydromorphone HCl (Dilaudid) 0.5 mg IV Q3H PRN PRN Reason: Pain , Severe (7-10) Latanoprost (Latanoprost 0.005%) 1 drops OU HS [facility] Last Admin: 09/16/18 21:36 Dose: 1 drops Documented by: Levetiracetam (Keppra) 1,000 mg PO BID [facility] Last Admin: 09/17/18 10:05 Dose: 1,000 mg Documented by: Lorazepam (Ativan) 1 mg IV Q3H PRN PRN Reason: Seizures Last Admin: 09/14/18 19:21 Dose: 1 mg Documented by: Ondansetron HCl (Zofran) 4 mg IV Q8H PRN PRN Reason: Nausea And Vomiting Last Admin: 09/15/18 11:02 Dose: 4 mg Documented by: Oxycodone/Acetaminophen (Percocet 5/325) 1 tab PO Q6H PRN PRN Reason: Pain, Moderate (4-6) Pantoprazole Sodium (Protonix) 40 mg PO DAILY [facility] Last Admin: 09/17/18 10:04 Dose: 40 mg Documented by: Sodium Chloride (Sodium Chloride Flush Syringe 10 Ml) 10 ml IV BID [facility] Last Admin: 09/17/18 10:06 Dose: 10 ml Documented by: Sodium Chloride (Sodium Chloride Flush Syringe 10 Ml) 10 ml IV PRN PRN PRN Reason: LINE FLUSH Physical Examination Vital Signs Temp Pulse Resp BP Pulse Ox 98.6 F 79 20 128/77 98 09/14/18 15:36 09/14/18 15:36 09/14/18 15:36 09/14/18 15:36 09/14/18 15:36 General appearance: no acute distress HEENT: Positive: PERRL Neck: Positive: trachea midline Cardiac: Positive: Reg Rate and Rhythm Lungs: Positive: Decreased Breath Sounds Neuro: Positive: Grossly Intact Extremities: Absent: edema Results 09/16/18 04:53 09/16/18 04:53 Assessment and Plan Altered mental status CT angiogram of the head reports an appearance of an approximately 3 mm x 1.5 mm x 2.4 mm aneurysm arising from the anterior communicating artery as suspected on MRA brain dated 09/15. Prior CVA Hyperlipidemia Hypothyroidism GERD Hx of Seizure disorder paroxysmal NSVT on telemetry patient remained asymptomatic TSH 0.005 A limited echocardiogram revealed an interatrial septum device. Bubble study is negative. There is mild dilatation of the aortic root measuring 4.0 cm. Normal left ventricular systolic function, EF 55%.
--- NOTE | 2018-09-17 11:45 | Discharge Summary ---
Providers - Providers Date of Admission: 09/14/18 17:28 Date of discharge: 09/17/18 Attending physician: DA HIGGINS 09/15/18 07:17 Consult to Physician [CONS] Routine Comment: Consulting Provider: SALOMON LICEA Physician Instructions: Reason For Exam: CVA 09/15/18 07:19 Occupational Therapy Evaluate and Treat [CONS] Routine Comment: Reason For Exam: Neuro deficits Physical Therapy Evaluation and Treat [CONS] Routine Comment: Reason For Exam: Neuro deficits 09/17/18 07:44 Consult to Physician [CONS] Routine Comment: Consulting Provider: MARY JANE DOS SANTOS Physician Instructions: Reason For Exam: abnormal ECHO 09/17/18 07:45 Consult to Physician [CONS] Routine Comment: Consulting Provider: NELDA RUIZ Physician Instructions: Reason For Exam: SARAVANAN aneurysm Primary care physician: EDUCATION ANALYST Hospitalization Condition: Stable Hospital course: Patient is a 68-year-old woman with history of CVA and seizures who presents to [facility] on 09/14/18 with multiple seizures witnessed by daughterSivan with AMS, weak in LUE and LLE weakness. * CT Head IMPRESSION: When compared to prior study of 05/26/2018 Again there is an area of encephalomalacia stable in appearance in the right MCA distribution with compensatory dilatation of the right lateral ventricle Again there is assumed small meningioma inner table of the superior midportion of the left parietal bone follow up MRI would be helpful to best evaluate this finding which appears to have slightly increased by approximately 3 mm in size prior study, but this could be due to slice selection artifact Otherwise the study is stable * MRI brain wo contrast IMPRESSION: . No evidence of acute infarction. Chronic infarction in the distribution of the right middle cerebral artery with encephalomalacia and surrounding gliosis. Scattered periventricular hyperintensities, nonspecific and most likely chronic ischemic changes related to small vessel disease. Small extra-axial mass bordering the left parietal convexity measuring approximately 1.1 cm, corresponding to calcified lesion seen on the prior CT examination and consistent with meningioma. * MRA brain wo contrast IMPRESSION: Questionable mild dilatation in the area of the anterior communicating artery. Small aneurysm cannot be excluded. Recommend further evaluation with contrast-enhanced CTA with multiplane and 3- D reconstructions. No major intracranial vessel occlusion. * CTA head IMPRESSION: 1. Appearance of an approximately 3 mm x 1.5 mm x 2.4 mm aneurysm arising from the anterior communicating artery as was suspected on the previous MRA brain dated September 15, 2018. 2. Otherwise unremarkable CT angiogram brain. * CTA neck IMPRESSION: Unremarkable CTA of neck. Cervical spondylosis as described above.. * TTE limited views Conclusions: Poor quality study, no color doppler, information for evaluation of valvular regurgitation, there is marked echogenicity of the interatrial septum, appears consistent with a foreign body, i.e. clamshell device, contrast saline study is negative for PFO, global left ventricular systolic function is normal, estimated EF 55-60%, mild concentric left ventricular hypertrophy is observed, right atrium is mildly dilated, mild dilatation of the aortic root which measures 4.0 cm, the ascending aorta measures 3.25 cm -Status epilepticus: increased keppra dose, until daughter can verify how much keppra was actually taking, EEG still pending at discharge, Neurologist, Dr. Licea has been following. -Meningioma: Neurology is following -Acute metabolic encephalopathy most likely related to Seizures, fully orientated x 3 today, which is her best mentation so far -Rule out Acute CVA (cerebrovascular accident) with MRI brain but defer to Neurology -HLD (hyperlipidemia) COnt Statins -GERD (gastroesophageal reflux disease) ppi -Hypothyroidism, low TSH at .005: stopped the synthroid, no Commodity Manager available here, patient may have taking too many, DaughterSivan, was going to look at her mother's weekly pill box. -Glaucoma: cont Latanoprost -DVT prophylaxis: On Lovenox and GI prophylaxis -SARAVANAN aneurysm: consulted Vascular, no CT surgery/NSY here==>recommended NSY evaluation, see below -Abnormal ECHO with ?foreign body, dilated aortic root: consulted Cardiology===>History of PFO close with amplatzer device 5 years ago in [place], Start metoprolol XL 50 mg once daily for incidental NSVT in the absence of chest pain. LVEF is normal by echo, Treat underlying hyperthyroidism, Follow-up with primary travel journalist as outpatient per Cardiology -4 beat run of NSVT at ~9:30am, I notified Cardiology==> start Metoprolol Reviewed Vascular surgery recommendation then I called [facility] at [phone] and spoke with Norma and gave her vitals and clinical summary. I am requesting Neurosurgery physician, services not offered here==>d/w Neurosurgery, Dr. Wilkins, recommends transfer for NeuroVascular evaluation, needs Cerebral Angiogram. Dr. Shelbi Wilkins has accepted to [facility]. I called daughter Sivan [phone], no answer and left my number. I have spoken with nurse and Charge nurse to send CD copies of all imaging with patient to [facility] Disposition: [id number] ANOTHER TYPE HLTHCARE Time spent for discharge: 35 minutes Core Measure Documentation - Palliative Care Palliative Care/ Comfort Measures: Not Applicable - Core Measures Any of the following diagnoses?: none - VTE Discharge Requirements Deep Vein Thrombosis/Pulmonary Embolism Present on Admission: No Has pt received <5 days of overlap therapy or INR<2.0: No Anticoagulant overlap therapy prescribed at discharge: No Contraindication No Overlap Therapy order at DC: Not Indicated Exam - Physical Exam Narrative exam: Gen: thin frail, cachetic, bmi 18==>19.6, NAD, Awake, Alert, Orientated x 3 HEENT: NCAT, EOMI, PERRL, OP Clear Neck: supple, no adenopathy, no thyromegaly, no JVD CVS/Heart: RRR, normal S1S2, pulses present bilaterally Chest/Lungs: CTA B, Symmetrical chest expansion, good air entry bilaterally GI/Abdomen: soft, NTND, good bowel sounds, no guarding or rebound /Bladder: no suprapubic tenderness, no CVA or paraspinal tenderness Extermity/Skin: no c/c/e, no obvious rash MSK: FROM x 4 Neuro: CN 2-12 grossly intact, no new focal deficits Psych: calm - Constitutional Vitals: Temp Pulse Resp BP Pulse Ox 97.2 F L 90 16 131/82 99 09/17/18 08:56 09/17/18 08:56 09/17/18 08:56 09/17/18 08:56 09/17/18 08:56 Plan Activity: up only with assistance, fall precautions, other (no strenous activity) Diet: low salt Special Instructions: other (need CD copies of all imaging and ECHO) Follow up with: PRIMARY MD INA [Primary Care Provider] - 3-5 Days SALOMON LICEA MD [Staff Physician] - 7 Days Prescriptions: Metoprolol Xl [Metoprolol SUCCINATE ER TAB] 50 mg PO QDAY #30 tablet
[2018-09-17 11:58] VITALS: BP 127/65
[2018-09-17] MEDS ORDERED: TOPROL XL PO SCH (12:00)
--- NOTE | 2018-09-17 17:13 | Progress Note ---
Subjective Date of service: 09/17/18 Interval history: finally spoke to the daughter and clearly eisode preceeeded by focal seizure therefore was not stroke recommend increase the keppra to 750 mg BID at the time if discharge and follow up in my office Thanks Objective - Vital Sign Vital Signs - 12hr 09/17/18 09/17/18 09/17/18 08:56 10:00 11:52 Temperature 97.2 F L 97.9 F Pulse Rate 90 87 Respiratory 16 18 Rate Blood Pressure 131/82 127/65 O2 Sat by Pulse 99 96 97 Oximetry - Laboratory Findings CBC and BMP: 09/16/18 04:53 09/16/18 04:53 Abnormal Lab Findings: Abnormal Labs 09/14/18 09/14/18 09/15/18 16:28 16:28 11:22 WBC MCH 27 L [place] % (Auto) 9.0 H Lymph # 0.8 L Seg Neutrophils % 72.1 H Chloride Creatinine Glucose 108 H POC Glucose Albumin HDL Cholesterol TSH 0.005 L 09/15/18 09/16/18 09/16/18 21:07 04:53 04:53 WBC 3.9 L MCH 27 L [place] % (Auto) 13.3 H Lymph # 1.0 L Seg Neutrophils % Chloride 109.2 H Creatinine 0.6 L Glucose 116 H POC Glucose 120 H Albumin 3.8 L HDL Cholesterol 68 H TSH 09/16/18 21:02 WBC MCH [place] % (Auto) Lymph # Seg Neutrophils % Chloride Creatinine Glucose POC Glucose 128 H Albumin HDL Cholesterol TSH
--- NOTE | 2018-09-17 22:51 | Progress Note ---
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 Prior CVA - high intensity statin recommended0 Hyperlipidemia - statin therapy recommended Hypothyroidism - management per primary GERD Hx of Seizure disorder paroxysmal NSVT on telemetry patient remained asymptomatic TSH 0.005 history of PFO closed with amplatz device - A limited echocardiogram revealed an interatrial septum device. Bubble study is negative. There is mild dilatation of the aortic root measuring 4.0 cm. Normal left ventricular systolic function, EF 55%. No further cardiac recommendations at this time. Thank you for the consult. Please re-consult as needed. Subjective Date of service: 09/17/18 Interval history: No acute events. Resting comfortably. No chest pain or SOB. Objective Vital Signs Temp Pulse Resp BP Pulse Ox 09/17/18 11:52 97.9 F 87 18 127/65 97 09/17/18 10:00 96 09/17/18 08:56 97.2 F L 90 16 131/82 99 09/17/18 03:38 98.5 F 84 12 104/80 100 09/16/18 23:20 98.7 F 95 H 12 121/70 99 09/16/18 23:00 91 H - Physical Examination HEENT: Positive: PERRL Neck: Positive: trachea midline Neuro: Positive: Grossly Intact Extremities: Absent: edema - Imaging and Cardiology EKG: report reviewed (NSR 82/min)
== END 2018-09-17 19:00 | disposition short-term general hospital (02) | DRG 101 ==
LOC: ED 15:22 → 4A 17:28
PROVIDERS: ADMIT Internal Medicine; ATTEND Internal Medicine
DX: G40.901 Epilepsy, unspecified, not intractable, with status epilepticus (principal); E03.9 Hypothyroidism, unspecified; K21.9 Gastro-esophageal reflux disease without esophagitis; Z90.710 Acquired absence of both cervix and uterus; Z79.82 Long term (current) use of aspirin; E05.90 Thyrotoxicosis, unspecified without thyrotoxic crisis or storm; Z91.018 Allergy to other foods; Z90.49 Acquired absence of other specified parts of digestive tract; H40.9 Unspecified glaucoma; E78.2 Mixed hyperlipidemia; D32.9 Benign neoplasm of meninges, unspecified
CPT/HCPCS: 36415; 70450; 70496; 70498; 70544; 70551; 71045; 80048; 80053; 80061; 81001; 82962; 83036; 83735; 84443; 84484; 85025; 85610; 85670; 85730; 93005; 93010; 93308; 93321; 93325; 93880; 94760; 95819; 96365; 99285; G0378; A9270-GY; J1650; J1953; J2060; J2405; Q9967